=== PATIENT | female | born 1955 | race Caucasian/White ===

== ENCOUNTER → 2016-09-24 | Outpatient (CLI) | payer BC, OTHER ==
[~2016-09-24] MED LIST: ATEN-173 PO; ATV5X PO; CHOL2000 PO; DIVIGEL EXT; DIVIGEL PO; DOXYCYCLINE PO; ESZO1TAB6 PO; FAMO20TA9 PO; MULT-188 PO; OMEG12006 PO; ONDA4TAB65 PO; OPTIRAY 320 IV PRN; PANC1200 PO; PROG1CAP PO; RANI300T2 PO; TNR25 PO; VNCS125 PO; [UNRECOGNIZED DRUG - CODE] PO
--- NOTE | 2016-09-24 09:51 | DIAGNOSTIC IMAGING REPORT ---
CT OF THE CHEST WITH IV CONTRAST CLINICAL HISTORY: LUNG ADENOCARCINOMA COMPARISON STUDY: 03/17/2016 TECHNIQUE: Following the IV administration of 93 mL of Optiray-320, CT of the thorax was performed from the thoracic inlet to the lung bases. Images are reviewed in the axial, sagittal, and coronal planes. IV contrast was administered without complication. CT DOSE: 197.62 mGy.cm FINDINGS: Thyroid: Imaged portions of the thyroid gland are normal in appearance. Thoracic aorta: The thoracic aorta is normal in course and caliber, noting standard 3-vessel arch anatomy. No aneurysm or dissection is seen. Pulmonary vasculature: The pulmonary trunk is normal in caliber. There are no central filling defects identified to suggest pulmonary embolus. Note that this examination was not protocoled for the evaluation of pulmonary emboli. HEART: There is a small pericardial effusion Lungs and pleural spaces: There is a small left pleural effusion, markedly decreased when compared the prior study. There are postsurgical changes of a left lower lobectomy. There is suture material within the left lung apex with decreasing surrounding soft tissue. The findings are felt to be postsurgical. There are no new or recurrent pulmonary masses identified. Mediastinum: There is no mediastinal lymphadenopathy. Kimberly: There is no evidence of pathologic hilar adenopathy. Axilla: There is no evidence of pathologic axillary lymphadenopathy Upper abdomen: There is a stable 3.4 cm right lobe hepatic mass. A prior MRI study performed April 2016, indicating this likely represents a hemangioma Skeletal structures: There is a stable subtle lytic lesion within the manubrium. IMPRESSION: 1. Improving postoperative changes within the left hemithorax with decreasing soft tissue surrounding the left apical suture line, and decreasing left pleural fluid. 2. No evidence of recurrent neoplasm within the chest. 3. Stable 3.4 cm right lobe hepatic mass likely representing a hemangioma 4. Stable 11 mm lytic lesion within the manubrium Electronically signed by: Forest Villarreal M.D. 09/24/2016 9:50 AM Dictated Date/Time: 09/24/2016 9:42 AM
== END | disposition home or self-care (01) ==
LOC: C.CTS 09:09
PROVIDERS: ATTEND Internal Medicine Hematology & Oncology
DX: C34.00 Malignant neoplasm of unspecified main bronchus (principal); R16.0 Hepatomegaly, not elsewhere classified

== ENCOUNTER → 2016-12-11 | Outpatient (CLI) | payer BC, OTHER ==
[~2016-12-11] MED LIST changes: -ATEN-173 PO; -DIVIGEL EXT; -DOXYCYCLINE PO; -FAMO20TA9 PO; -OMEG12006 PO; -OPTIRAY 320 IV PRN; -[UNRECOGNIZED DRUG - CODE] PO
--- NOTE | 2016-12-17 12:47 | MAMMOGRAPHY REPORT ---
BILATERAL DIGITAL SCREENING MAMMOGRAM TOMOSYNTHESIS WITH CAD: 12/11/2016 CLINICAL HISTORY: Routine screening. The patient reported to the technologist that she has worsenin g right breast tenderness as well as right breast palpable lumps. TECHNIQUE: Breast tomosynthesis in addition to standard 2D mammography was performed. Current study was also evaluated with a Computer Aided Detection (CAD) system. Bilateral CC and MLO 2-D and tomosy nthesis images including implant displaced views were obtained. Tomosynthesis images were obtained o f the implant displaced views only. COMPARISON: Comparison is made to exams dated: 06/13/2015 mammogram, 11/19/2014 mammogram, 12/04/2013 ma mmogram, and 09/09/2012 mammogram - [facility]. BREAST COMPOSITION: The tissue of both breasts is heterogeneously dense, which may obscure small mas ses. FINDINGS: A triangle marker berger the site of the palpable lump pointed out by the patient in the ri ght 6:00 breast. A square marker berger the site of pain in the right upper outer quadrant. There ar e no suspicious masses, calcifications, or areas of architectural distortion noted in either breast. There has been no significant interval change compared to prior exams. Scattered bilateral benign-a ppearing calcifications are noted. Additionally, there are multiple round circumscribed fat density masses seen bilaterally, predominantly in the right breast, some of which are rim calcified; findings are consistent with benign oil cysts related to fat necrosis. Bilateral pre-pectoral silicone impla nts are stable in appearance. IMPRESSION: ACR BI-RADS CATEGORY 0: INCOMPLETE EVALUATION: NEED ADDITIONAL IMAGING EVALUATION No mammographic evidence of malignancy in either breast. However, at the time of the exam, the patie nt reported to the technologist that she has right breast palpable lumps and increasing right breast pain. As the complete workup of a palpable lump or focal pain includes mammograms as well as ultraso und, recommend additional imaging evaluation with ultrasound. The patient will be called to schedule an appointment. Approximately 10% of breast cancers are not detected with mammography. A negative mammographic report should not delay biopsy if a clinically suggestive mass is present. Angela Miranda M.D. ah/:12/16/2016 15:08:17 Bakery Deliverer: Katlyn DUARTE)(Jonh), [facility] letter sent: Addl Imaging 0 BI-RADS Code: ACR BI-RADS Category 0: Incomplete Evaluation: Need Additional Imaging Evaluation
== END | disposition home or self-care (01) ==
LOC: C.MAMM 10:56
PROVIDERS: ATTEND Physician Assistant
DX: Z12.31 Encounter for screening mammogram for malignant neoplasm of breast (principal)

== ENCOUNTER → 2016-12-29 | Outpatient (CLI) | payer BC, OTHER ==
--- NOTE | 2016-12-29 14:36 | MAMMOGRAPHY REPORT ---
ULTRASOUND OF RIGHT BREAST: 12/29/2016 CLINICAL HISTORY: 61-year-old woman with a personal history of lung cancer and multiple prior breast surgeries reported lumps in the periareolar and 6:00 right breast, and pain/thickening in the upper o uter quadrant of the right breast. She reports she frequently feels lumps and pain in the right [address]. Occasionally she has severe pain while lying on her right side in the area where her arm is touc nohemy the breasts. No skin erythema or nipple discharge. Family history of breast cancer = paternal aunt. COMPARISON: Comparison is made to exams dated: 12/11/2016 mammogram - [facility], mammogram, 11/19/2014 mammogram, 12/04/2013 mammogram, and 09/09/2012 mammogram - [facility]. FINDINGS: Targeted ultrasound was first performed in the area of lumps pointed out by the patient. In the 7:00 periareolar and 6:00 breast, 1 cm from the nipple, 2 small discrete pea-sized lumps are p alpated. On ultrasound, there are 2 circumscribed round to oval anechoic nonvascular benign simple c ysts versus fat necrosis. The first seen in the 7:00 periareolar right breast measures 7.1 x 5.0 x 7 .1 mm, and the second in the 6:00 right breast, 1 cm from the nipple measures 5.0 x 4.2 x 5.0 mm. 2 additional anechoic cyst versus fat necrosis are seen in the retroareolar right breast, measuring 6.6 x 4.9 and 4.9 x 4.4 mm. Then targeted ultrasound was performed in the area of pain pointed out by the patient in the upper ou ter quadrant of the right breast. She was unable to pinpoint the exact area today but scanning was p erformed in the 8:00, 9:00 and 10:00 axes. Sonographically normal tissue is seen without a suspiciou s solid or cystic mass. A few anechoic cysts versus fat necrosis are also seen in the right upper ou ter quadrant in real-time scanning. IMPRESSION: ACR BI-RADS CATEGORY 2: BENIGN There are benign simple cysts versus benign oil cysts correlating with the palpable lumps in the 6:00 and 7:00 periareolar axes of the left breast. No suspicious sonographic abnormality identified in t he area of pain in the right upper outer quadrant. These findings are benign and could represent fib rocystic changes and/or the sequelae of prior surgery. Continued clinical monitoring is recommended. Otherwise recommend return at time of next annual screening exam. These results and recommendations were discussed with the patient at the time of the exam. Sil Swenson M.D. ay/:12/29/2016 12:03:15 Mold Engraver: Kalee GILLIAM(Travis)(Jonh), [facility] letter sent: Normal 1/2 BI-RADS Code: ACR BI-RADS Category 2: Benign
== END | disposition home or self-care (01) ==
LOC: C.MAMM 11:20
PROVIDERS: ATTEND Physician Assistant
DX: N63 Unspecified lump in breast (principal); N60.02 Solitary cyst of left breast

== ENCOUNTER → 2017-01-14 | Outpatient (CLI) | payer BC, OTHER ==
[~2017-01-14] MED LIST changes: +OPTIRAY 320 IV PRN
--- NOTE | 2017-01-14 09:28 | DIAGNOSTIC IMAGING REPORT ---
CT OF THE CHEST WITH IV CONTRAST CLINICAL HISTORY: Adenocarcinoma the lung. Post chemotherapy. COMPARISON STUDY: 09/24/2016 TECHNIQUE: Following the IV administration of 78 mL of Optiray-320, CT of the thorax was performed from the thoracic inlet to the lung bases. Images are reviewed in the axial, sagittal, and coronal planes. IV contrast was administered without complication. A dose lowering technique was utilized adhering to the principles of ALARA. CT DOSE: 245.74 mGy.cm FINDINGS: Thyroid: Imaged portions of the thyroid gland are normal in appearance. Thoracic aorta: The thoracic aorta is normal in course and caliber, noting standard 3-vessel arch anatomy. No aneurysm or dissection is seen. Pulmonary vasculature: The pulmonary trunk is normal in caliber. There are no central filling defects identified to suggest pulmonary embolus. Note that this examination was not protocoled for the evaluation of pulmonary emboli. HEART: The heart is normal in size and configuration, without pericardial effusion. Lungs and pleural spaces: There are postsurgical changes of a left lower lobectomy. There are areas of chronic left lung scarring. There is suture material within the left apex similar in appearance the prior study. No new or enlarging point nodules are visualized. There is no focal pulmonary consolidation. There is minimal left pleural fluid, similar to the prior study. Mediastinum: There is no mediastinal lymphadenopathy. Kimberly: Clear. Axilla: Clear. Upper abdomen: There is a stable 35mm right lobe hepatic mass, consistent with the patient's known hemangioma. There are bilateral breast prostheses. Skeletal structures: There is a stable very subtle lytic focus within the manubrium. IMPRESSION: 1. No evidence of recurrent neoplasm within the chest 2. Stable 35mm right lobe hepatic mass consistent with the patient's known hemangioma 3. Stable very subtle lytic focus within the manubrium Electronically signed by: Forest Villarreal M.D. 01/14/2017 9:27 AM Dictated Date/Time: 01/14/2017 9:20 AM
== END | disposition home or self-care (01) ==
LOC: C.CTS 08:57
PROVIDERS: ATTEND Internal Medicine Hematology & Oncology
DX: C34.00 Malignant neoplasm of unspecified main bronchus (principal); R16.0 Hepatomegaly, not elsewhere classified

== ENCOUNTER → 2017-01-27 | Outpatient (CLI) | payer BC, OTHER ==
[~2017-01-27] MED LIST changes: -OPTIRAY 320 IV PRN
== END | disposition home or self-care (01) ==
LOC: C.PAPS 09:52
PROVIDERS: ATTEND Physician Assistant
DX: Z01.419 Encounter for gynecological examination (general) (routine) without abnormal findings (principal)

== ENCOUNTER → 2017-04-05 | Day surgery (SDC) | payer BC, OTHER ==
[2017-03-23 08:59] VITALS: Ht 162.6 cm; Wt 52.7 kg
--- NOTE | 2017-04-02 13:24 | HISTORY & PHYSICAL EXAMINATION ---
DATE OF ADMISSION: 04/05/2017 CHIEF COMPLAINT: Cervical dysplasia with inadequate colposcopy. HISTORY OF PRESENT ILLNESS: The patient is a 61-year-old white female who had a negative Pap smear 2016, but positive high risk HPV test. Repeat Pap smear this year was again negative but once again high risk HPV testing was positive. Colposcopy revealed acetowhite epithelium at the cervical os. It was not possible to obtain a biopsy but endocervical curettage was carried out. This showed rare dysplastic squamous cells consistent with mild dysplasia. The patient is a 5, para 2. She has a history of lung cancer and has been treated with surgery and chemotherapy. ALLERGIES: THE PATIENT PROVIDES A LONG LIST OF ALLERGIES WHICH INCLUDE 5 HTP TRYPTOPHAN TABLETS, AUGMENTIN, AZITHROMYCIN, BIAXIN, CALCIUM CHANNEL BLOCKERS, CIPRO, CODEINE DERIVATIVES, DILAUDID, DOXYCYCLINE, FENTANYL, LATEX, MACROBID, NSAIDS, SKELAXIN, STATINS, SULFA DRUGS, TAXOTERE, THIMEROSAL, ULTRAM AND ZYRTEC. PAST MEDICAL HISTORY: ILLNESSES: The patient has degenerative disc disease in her cervical spine. Hyperlipidemia, irritable bowel syndrome, a leaky heart valve, history of lung cancer, and May-Thurner syndrome. She has had basal cell cancers removed. She also has a history of pancreatitis. The patient also has a history of C difficile infection though recent testing was negative. SURGERY: She has had lung surgery for the lung cancer. She also has a history of surgery for hammertoe, breast biopsy and knee surgery. SOCIAL HISTORY: The patient is . She denies smoking cigarettes. The patient does report occasional alcohol use. FAMILY HISTORY: Her mother has a history of heart disease and cerebrovascular accident, also hypertension. MEDICATIONS: The patient takes atenolol 25 mg daily, Coenzyme Q10 capsules once daily. She uses Divigel 0.5 mg/0.5 grams transdermal gel as well as Prometrium 200 mg daily, lorazepam 0.5 mg daily, Pepcid tablets as needed, Ocuvite tablets 1 daily, Milam 3 1000 mg daily, and Creon 24,000 units oral capsule daily. PHYSICAL EXAMINATION: VITAL SIGNS: Height is 5 foot 3-3/4, weight 120 pounds. HEAD, EYES, EARS, NOSE, AND THROAT: Grossly within normal limits. NECK: Supple without masses. CHEST: Her lungs are clear without wheezing. HEART: Regular rate and rhythm. No murmurs, gallops or rubs. ABDOMEN: Soft and nontender. PELVIC: External genitalia normal. Vagina pink and smooth. Cervix, no visible lesions. Uterus within normal limit size, nontender, adnexa nontender with no masses palpable. EXTREMITIES: No cyanosis, clubbing or edema. IMPRESSION: Cervical dysplasia, inadequate colposcopy, history of positive high risk HPV. PLAN: The patient is for cold knife conization. She is aware of the risks of infection, bleeding, damage to surrounding structures, possible transfusion, risks of anesthesia. She is aware of the risks of cervical stenosis. We have discussed options of no treatment which is not recommended and LEEP procedure. The patient wishes to proceed with cold knife conization. JULIETA
[~2017-04-05] VITALS: Ht 162.6 cm; Wt 52.7 kg
[~2017-04-05] MED LIST changes: +ATEN-173 PO; +ATROPINE SULFATE 0.1 MG/ML 5ML SYR IV PRN; -CHOL2000 PO; +DEXAMETHASONE SOD INJ 4 MG/ML VIAL ONE; +DIVIGEL EXT; -DIVIGEL PO; +DOXYCYCLINE PO; -ESZO1TAB6 PO; +EpHEDrine SULFATE INJ 50 MG/ML AMP IV PRN; +FAMO20TA9 PO; +FENTANYL CITRATE INJ 50 MCG/1 ML 2 ML VIAL ONE; +FERRIC SUBSULFATE 8 GM VIAL ONE; +IODINE SOLN STRONG 14 ML ONE; +KETOROLAC TROMETHAMINE 30 MG/ML VIAL ONE; +LACTATED RINGER'S 1000ML 1,000 ML IV SCH; +LIDOCAINE HCL 2% 2 ML VIAL (20MG/ML) ONE; +LIDOCAINE/EPINEPHRINE 1% INJ 50 ML VIAL ONE; +MIDAZOLAM HCL 1 MG/ML 2ML VIAL ONE; +OMEG12006 PO; -ONDA4TAB65 PO; +ONDANSETRON INJ 2 MG/ML 2 ML VIAL ONE; +PROPOFOL IV EMULSION 10 MG/ML 20 ML VIAL IV ONE; -RANI300T2 PO; +SCOPOLAMINE 1.5 MG TDSY TD ONE; +SODIUM CHLORIDE 0.9% 1000ML 1,000 ML IV SCH; -TNR25 PO; -VNCS125 PO; +[UNRECOGNIZED DRUG - CODE] PO
--- NOTE | 2017-04-05 07:10 | History & Physical Bridge - SC ---
H&P Re-Evaluation Bridge Note: I have examined the patient, reviewed the History & Physical and in the interval since the performance of the History & Physical I have noted the following changes of clinical significance: Patient complains of grape like growth at anus. Patient examined and hemorrhoidal tissue noted. No other change in history or physical.
--- NOTE | 2017-04-05 07:44 | [facility] Post Operative Brief Note ---
Immediate Operative Summary Operative Date Apr 05, 2017. Pre-Operative Diagnosis Cervical dysplasia with inadequate colposcopy Post-Operative Diagnosis Same with pathology pending Procedure(s) Performed Cold Knife Cone Biopsy of Cervix Surgeon Dr. Boone Emergency Care Attendant Surgeon(s) None Estimated Blood Loss 10ml Findings See dictated note. Specimens A. Cervical cone biopsy, suture at 12 o'clock B. Endocervical curettings C. Cervical Anterior Lip Complication(s) None Disposition Recovery Room / PACU
--- NOTE | 2017-04-05 07:55 | Discharge Instructions-SurgCtr ---
Discharge Instructions Date of Service Apr 05, 2017. Visit Reason for Visit: Cervical dysplasia, inadequate colposcopy Discharge Discharge Diagnosis / Problem: S/P Cold Knife Cone Biopsy of Cervix Discharge Goals Goal(s): Diagnostic testing, Therapeutic intervention Activity Recommendations Activity Limitations: per Instructions/Follow-up section ACTIVITY RECOMMENDATIONS: Normal activity the day after procedure with the following exceptions/ limitations: 1. No strenuous activity for 3 days. 2. Nothing in vagina until after you are cleared by your physician, usually 4-6 weeks. 3. No heavy lifting greater than 10 pounds for 3 days. 4. No tampons, douches or intercourse until cleared by physician. 5. You may drive when you feel capable after 24 hours. 6. You may bath or shower. 7. You may climb stairs without restrictions. 8. If you have persistent cramping, foul smelling vaginal discharge or fever, call the office at [phone]. Anesthesia . Post Anesthesia Instructions: If you have had General Anesthesia or IV Sedation: * Do not drive today. * Resume driving when surgeon permits. * Do not make important decisions or sign legal documents today. * Call surgeon for: 1. Temperature elevations greater than 101 degrees F. 2. Uncontrollable pain. 3. Excessive bleeding. 4. Persistent nausea and vomiting. 5. Medication intolerance (nausea, vomiting or rash). * For nausea and vomiting use only clear liquids such as: tea, soda, bouillon until nausea subsides, then gradually increase diet as tolerated. * If you have any concerns or questions, call your surgeon's office. If physician is unavailable and it is an emergency, call 911 or go to the nearest emergency room. . Instructions / Follow-Up Instructions / Follow-Up ACTIVITY RECOMMENDATIONS: Normal activity the day after procedure with the following exceptions/ limitations: 1. No strenuous activity for 3 days. 2. Nothing in vagina until cleared by your physician. 3. No heavy lifting greater than 10 pounds for three days. 4. No tampons, douches or intercourse until cleared by physician. 5. You may drive when you feel capable after 24 hours. 6. You may bath or shower. 7. You may climb stairs without restrictions. 8. If you have persistent cramping, foul smelling discharge or fever, call office at [phone]. Set up follow up appointment with Dr Boone for about 4 weeks call [phone]. Diet Recommendations Home Diet: resume previous diet Procedures Procedures Performed: Cold Knife Cone Biopsy of Cervix Pending Studies Studies pending at discharge: yes List of pending studies: Pathology report on tissue removed. We will call you. The report usually takes at least one week. Medical Emergencies . Who to Call and When: Medical Emergencies: If at any time you feel your situation is an emergency, please call 911 immediately. . Non-Emergent Contact Non-Emergency issues call your: Space Studies Faculty Member Call Non-Emergent contact if: temperature is above 100.5, your pain is worsening . . "Provider Documentation" section prepared by Marian Boone. .
--- NOTE | 2017-04-05 08:03 | OPERATIVE REPORT ---
DATE OF OPERATION: 04/05/2017 PREOPERATIVE DIAGNOSIS: Cervical dysplasia with inadequate colposcopy. POSTOPERATIVE DIAGNOSIS: Same with pathology pending. PROCEDURE: Cold knife cone biopsy of the cervix. SURGEON: Dr. Marian Boone. ANESTHESIA: General. ANESTHESIOLOGIST: Dr. King. PROCEDURE IN DETAIL: The patient was taken to the operating room where general anesthesia was administered. After an adequate level was obtained, she was placed in dorsal lithotomy position. Vulva, vagina and cervix were prepped with Betadine solution. The patient was draped. Bladder was drained with a straight catheter. Weighted speculum was placed in the posterior fornix of the vagina. The anterior lip of the cervix was grasped with a single tooth tenaculum. Sutures of 0 Vicryl were placed lateral to the cervix at 3 o'clock and 9 o'clock for hemostasis. Lugol's solution was then used to paint the cervix. There were no unstained areas visible at the cervical os. There was an area on the anterior lip where the epithelium did not take up the stain well. The cervix was then injected with lidocaine with epinephrine, 5 mL used. A scalpel was used to cut a 2 cm deep cone biopsy of the cervix. This was removed with Alonzo scissors. The endocervical canal was identified once more and the canal curetted with a Pozo's curette. Scant tissue obtained. This was also sent to pathology. Finally, the area on the anterior lip of the cervix which did not take up the Lugol's stain very well, was removed and sent separately to pathology. Hemostasis was then obtained with ball tip cautery and with Monsel's paste. The patient tolerated the procedure well and was taken to the recovery room in good condition. I attest to the content of the Intraoperative Record and any orders documented therein. Any exceptions are noted below. MTDD
[2017-04-05 08:37] VITALS: TEMP 36.8
[2017-04-05 09:07] VITALS: BP 106/61; PULSE 63; O2SAT 100
--- NOTE | 2017-04-05 09:08 | Anesthesia Progress Nt - [facility] ---
Anesthesia Post Op Note Date & Time Apr 05, 2017 at 09:07 Vital Signs Pain Intensity: 0 Vital Signs Past 12 Hours Date Time Temp Pulse Resp B/P (MAP) Pulse Ox O2 Delivery O2 Flow Rate FiO2 04/05/17 08:37 36.8 66 16 103/63 (76) 100 Room Air 04/05/17 08:26 102/54 04/05/17 08:25 36.9 68 16 102/54 100 Room Air 04/05/17 08:22 67 21 99 04/05/17 08:22 66 21 04/05/17 08:21 110/69 04/05/17 08:17 63 13 100 04/05/17 08:17 64 13 04/05/17 08:15 112/64 04/05/17 08:12 60 16 04/05/17 08:12 60 16 100 04/05/17 08:10 105/77 04/05/17 08:07 63 13 100 04/05/17 08:07 63 13 04/05/17 08:06 96/55 04/05/17 08:05 69 19 04/05/17 08:05 69 19 100 04/05/17 08:00 64 22 04/05/17 08:00 64 22 117/64 100 04/05/17 08:00 36.8 64 12 117/64 100 Diffusion Mask 6 04/05/17 06:33 36.9 74 16 99/62 (74) 100 Room Air Notes Mental Status: alert / awake / arousable, participated in evaluation Pt Amnestic to Procedure: Yes Nausea / Vomiting: adequately controlled Pain: adequately controlled Airway Patency, RR, SpO2: stable & adequate BP & HR: stable & adequate Hydration State: stable & adequate Anesthetic Complications: no major complications apparent
== END | disposition home or self-care (01) ==
LOC: X.SURG 06:19
PROVIDERS: ATTEND Obstetrics & Gynecology
DX: N87.0 Mild cervical dysplasia (principal); R87.810 Cervical high risk human papillomavirus (HPV) DNA test positive; M50.90 Cervical disc disorder, unspecified, unspecified cervical region; Z79.899 Other long term (current) drug therapy

== ENCOUNTER 2017-05-15 12:01 | Emergency (ER) | payer BC, OTHER ==
[~2017-05-15] VITALS: Ht 162.6 cm; Wt 56.0 kg
[~2017-05-15 12:01] MED LIST changes: -ATEN-173 PO; -ATROPINE SULFATE 0.1 MG/ML 5ML SYR IV PRN; -DEXAMETHASONE SOD INJ 4 MG/ML VIAL ONE; -EpHEDrine SULFATE INJ 50 MG/ML AMP IV PRN; -FENTANYL CITRATE INJ 50 MCG/1 ML 2 ML VIAL ONE; -FERRIC SUBSULFATE 8 GM VIAL ONE; -IODINE SOLN STRONG 14 ML ONE; -KETOROLAC TROMETHAMINE 30 MG/ML VIAL ONE; -LACTATED RINGER'S 1000ML 1,000 ML IV SCH; -LIDOCAINE HCL 2% 2 ML VIAL (20MG/ML) ONE; -LIDOCAINE/EPINEPHRINE 1% INJ 50 ML VIAL ONE; -MIDAZOLAM HCL 1 MG/ML 2ML VIAL ONE; -MULT-188 PO; -OMEG12006 PO; -ONDANSETRON INJ 2 MG/ML 2 ML VIAL ONE; -PANC1200 PO; -PROPOFOL IV EMULSION 10 MG/ML 20 ML VIAL IV ONE; -SCOPOLAMINE 1.5 MG TDSY TD ONE; -SODIUM CHLORIDE 0.9% 1000ML 1,000 ML IV SCH
[2017-05-15 12:08] VITALS: TEMP 36.8; Ht 162.6 cm; Wt 56.0 kg
[2017-05-15] MEDS ORDERED: KETOROLAC TROMETHAMINE 30 MG/ML VIAL IV STA (12:24)
[2017-05-15] MEDS ORDERED: ONDANSETRON INJ 2 MG/ML 2 ML VIAL IV STA (12:24)
[2017-05-15] MEDS ORDERED: SODIUM CHLORIDE 0.9% 1000ML 500 ML IV STA (12:24)
[2017-05-15] MEDS ORDERED: ACETAMINOPHEN 500 MG TAB PO STA (12:24)
[2017-05-15] MEDS ORDERED: GABA-112 PO (13:04)
--- NOTE | 2017-05-15 13:12 | DIAGNOSTIC IMAGING REPORT ---
L TIBIA/FIBULA 2 VIEWS ROUTINE CLINICAL HISTORY: 61 years-old Female presenting with PAIN, POSS NODULE DISTAL LEG/BONE/CA HIST. TECHNIQUE: Frontal and lateral views of the left lower leg were obtained. COMPARISON: None. FINDINGS: Knee joint and ankle mortise intact. No acute fracture or malalignment. No advanced degenerative change. No radiographic soft tissue abnormality. IMPRESSION: No acute osseous injury of the left lower leg. Electronically signed by: Rocky Underwood M.D. 05/15/2017 1:11 PM Dictated Date/Time: 05/15/2017 1:10 PM
--- NOTE | 2017-05-15 13:16 | EMERGENCY ROOM VISIT NOTE ---
History Report prepared by Leti: Evaristo Alejandro Under the Supervision of: Dr. Alpesh Tran M.D. First contact with patient: 12:19 Chief Complaint: HEADACHE Stated Complaint: SEVERE HEAD PAIN, NAUSEA, DIZZY History of Present Illness The patient is a 61 year old female who presents to the Emergency Room with complaints of an intermittent headache beginning three weeks ago. She rates her discomfort as an 8/10 in severity. The patient reports that her symptoms are worsened in the afternoon and evening. The patient states that she has been experiencing tinnitus and dizziness for the last three weeks. She reports that they had been short episodes and manageable until recently. The patient states that she would have pain behind her eyes and into the back of her head. She reports that she also feels as if her face is hot and "in flames". She states that her symptoms are also accompanied by intermittent nausea. The patient states that she was relieved of her symptoms for three days, but reports that the last three days her symptoms returned and have remained constant. The patient states that she took Ibuprofen for her symptoms without any relief. The patient reports that she is worried that her lung cancer has metastasized. She reports that her last chemotherapy was on August 05, 2015. The patient states that she had a lobectomy on her left side due to her cancer. She states that she developed C. Diff. following the surgery. She states that since the chemotherapy, she noticed her arms and legs have progressively become weaker. The patient states that she also has a lump on her right leg that is painful. She denies sinus congestion and a sore throat. Source of History: patient Onset: three weeks ago Position: head Symptom Intensity: 8/10 Quality: ache Timing: intermittent Modifying Factors (Worsening): other (worsened in the evening) Modifying Factors (Relieving): ibuprofen Associated Symptoms: + nausea, No sorethroat Review of Systems See HPI for pertinent positives & negatives. A total of 10 systems reviewed and were otherwise negative. Past Medical & Surgical Medical Problems: (1) Bronchitis (2) Clostridium difficile enterocolitis (3) Failure of outpatient treatment Family History Heart disease Hypertension Lung disease Social History Smoking Status: Never Smoker Alcohol Use: occasionally Drug Use: none Marital Status: Housing Status: lives with family Occupation Status: employed Current/Historical Medications Scheduled Amoxicillin (Amoxil), 500 MG PO TID Atenolol (Tenormin), 25-37.5 MG PO QPM Gabapentin (Neurontin), 100 MG PO HS Multiple Vitamins W/ Minerals (Ocuvite), 1 TAB PO QAM Erhard-3 Fatty Acids (Erhard 3), 1 CAP PO DAILY Pancrelipase (Lipase-Protease- (Creon [id number]), 2 CAP PO TIDM Scheduled PRN Eszopiclone (Lunesta), 0.25 TAB PO HS PRN for Sleep Lorazepam (Lorazepam), 0.5 MG PO QPM PRN for PRN Allergies Coded Allergies: Latex (Verified Allergy, Severe, INFLAMATION, REDNESS, PAIN, 04/05/17) Sulfa Antibiotics (Verified Allergy, Severe, RASH, 04/05/17) FROM G Calcium Channel Blockers (Verified Allergy, Unknown, CAN'T REMEMBER, 04/05) Cetirizine (Verified Allergy, Unknown, VASCULAR CONTRACTIONS, 04/05/17) Chlorine (Unverified Allergy, Unknown, INFLAMMATION, 04/05/17) Ciprofloxacin (Verified Allergy, Unknown, RASH, 04/05/17) Clarithromycin (Verified Allergy, Unknown, RASH, 04/05/17) Doxycycline (Verified Allergy, Unknown, PANCREATITIS, 04/05/17) Milk (Verified Allergy, Unknown, LACTOSE INTOL, 04/05/17) Milk-related Compounds (Verified Allergy, Unknown, LACTOSE INTOL., ) Mirtazapine (Verified Allergy, Unknown, "TETRACYCLIC ANTIDEPRESSANTS", ) Nitrofurantoin (Verified Allergy, Unknown, RASH, 04/05/17) Metaxalone (Verified Adverse Reaction, Intermediate, RACING HEART, DIZZY, SICK, PAIN IN ANKLES/FEET, 05/15/17) Monosodium Glutamate (Verified Adverse Reaction, Mild, MIGRAINES, 04/05/17 ) Azithromycin (Verified Adverse Reaction, Unknown, GI DISTRESS, 05/15/17) Clavulanic Acid (Verified Adverse Reaction, Unknown, DIARRHEA, 04/05/17) Codeine (Verified Adverse Reaction, Unknown, DROP IN BP, 04/05/17) Fentanyl (Verified Adverse Reaction, Unknown, VOMITTING, 04/05/17) LOWERS BP, VOMITING Hydromorphone (Verified Adverse Reaction, Unknown, VOMITTING, 04/05/17) Lactose (Verified Adverse Reaction, Unknown, INTOLERANT, 05/15/17) NSAIDs (Verified Adverse Reaction, Unknown, WATER RETENTION, 04/05/17) Statins (Verified Adverse Reaction, Unknown, MUSCLE LEG PAIN, 04/05/17) Tramadol (Verified Adverse Reaction, Unknown, SICK, 04/05/17) Uncoded Allergies: FRAGRANCES (Allergy, Unknown, INFLAMMATION AND IRRITATION, 12/09/15) [place] (Allergy, Unknown, SWELLING AROUND EYES, 12/09/15) PETROLEUM (Allergy, Unknown, SWELLING, REDNESS, IRRITATION, 12/09/15) THIMERASOL (Allergy, Unknown, HIGH FEVER AND BLINDING HEADACHE, 12/09/15) ANTIDEPRESSANTS (Adverse Reaction, Unknown, ARRHYTHYMIA, 12/09/15) MYCINS (Adverse Reaction, Unknown, GI INTOLERANCE, 12/09/15) STEROID (Adverse Reaction, Unknown, SEVERE PAIN, BURNING HOT, INFLAMMATION , 12/09/15) STEROID INJECTION* Physical Exam Vital Signs Date Time Temp Pulse Resp B/P (MAP) Pulse Ox O2 Delivery O2 Flow Rate FiO2 05/15/17 15:06 61 20 108/60 99 Room Air 05/15/17 12:08 36.8 69 18 125/63 100 Room Air Physical Exam GENERAL: Patient is in no acute distress. HEENT: No acute trauma, normocephalic atraumatic, mucous membranes moist, no nasal congestion, no scleral icterus. TMs clear bilaterally. Pupils are equal and reactive to light. NECK: No stridor, no adenopathy, no meningismus, trachea is midline. LUNGS: Clear to auscultation bilaterally, no wheeze, no rhonchi, breath sounds equal. HEART: Without murmurs gallops or rubs, regular rate and rhythm. ABDOMEN: Soft, nontender, bowel sounds positive, no hernias, no peritonitis. EXTREMITIES: No cyanosis or edema, full range of motion of all the joints without pain or difficulty, no signs for acute trauma. 1 cm palpable lesion located to the distal left leg along the medial aspect of the tibia. There is no erythema or warmth. The area is tender. NEUROLOGIC: Oriented x 3, no acute motor or sensory deficits, no focal weakness. No pronator drift or cerebellar dysfunction. No speech slur or facial droop. SKIN: No rash, no jaundice, no diaphoresis. Medical Decision & Procedures ER Provider Diagnostic Interpretation: Radiology results as stated below per my review and radiologist interpretation: BRAIN COMBO CLINICAL HISTORY: 61 years-old Female presenting with Evaluate for mass, hemorrhage or pathology--HISTORY OF CANCER, tinnitus, nausea, history of adenocarcinoma the lung in 2012 with recurrent disease in 2016, no recent trauma, concern for metastatic disease. TECHNIQUE: Multisequence, multiplanar MR imaging of the brain was performed before and after the administration of intravenous contrast. IV contrast: 5.6 mL of Gadavist. COMPARISON: 09/04/2015. FINDINGS: Ventricles and sulci normal in size. Brain parenchyma normal in appearance with preserved grossman-white differentiation. No mass effect or midline shift. No restricted diffusion to suggest acute ischemia. No hemorrhage. No extra-axial fluid collection. T2 skull base flow voids preserved. No abnormal parenchymal enhancement. Bone marrow signal intensity within the calvarium within normal limits. IMPRESSION: 1. No acute intracranial pathology. No abnormal enhancement. Electronically signed by: Rocky Underwood M.D. 05/15/2017 2:55 PM Dictated Date/Time: 05/15/2017 2:50 PM L TIBIA/FIBULA 2 VIEWS ROUTINE CLINICAL HISTORY: 61 years-old Female presenting with PAIN, POSS NODULE DISTAL LEG/BONE/CA HIST. TECHNIQUE: Frontal and lateral views of the left lower leg were obtained. COMPARISON: None. FINDINGS: Knee joint and ankle mortise intact. No acute fracture or malalignment. No advanced degenerative change. No radiographic soft tissue abnormality. IMPRESSION: No acute osseous injury of the left lower leg. Electronically signed by: Rocky Underwood M.D. 05/15/2017 1:11 PM Dictated Date/Time: 05/15/2017 1:10 PM Laboratory Results 05/15/17 12:55 Red Blood Count 4.19, Mean Corpuscular Volume 89.7, Mean Corpuscular Hemoglobin 30.8, Mean Corpuscular Hemoglobin Concent 34.3, Mean Platelet Volume 9.7, Neutrophils (%) (Auto) 51.0, Lymphocytes (%) (Auto) 38.9, Monocytes (%) (Auto) 7.1, Eosinophils (%) (Auto) 2.7, Basophils (%) (Auto) 0.1, Neutrophils # (Auto) 4.16, Lymphocytes # (Auto) 3.18, Monocytes # (Auto) 0.58, Eosinophils # (Auto) 0.22, Basophils # (Auto) 0.01 05/15/17 12:55 Test 05/15/17 12:55 White Blood Count 8.17 K/uL (4.8-10.8) Red Blood Count 4.19 M/uL (4.2-5.4) Hemoglobin 12.9 g/dL (12.0-16.0) Hematocrit 37.6 % (37-47) Mean Corpuscular Volume 89.7 fL (80-100) Mean Corpuscular Hemoglobin 30.8 pg (25-34) Mean Corpuscular Hemoglobin Concent 34.3 g/dl (32-36) Platelet Count 197 K/uL (130-400) Mean Platelet Volume 9.7 fL (7.4-10.4) Neutrophils (%) (Auto) 51.0 % Lymphocytes (%) (Auto) 38.9 % Monocytes (%) (Auto) 7.1 % Eosinophils (%) (Auto) 2.7 % Basophils (%) (Auto) 0.1 % Neutrophils # (Auto) 4.16 K/uL (1.4-6.5) Lymphocytes # (Auto) 3.18 K/uL (1.2-3.4) Monocytes # (Auto) 0.58 K/uL (0.11-0.59) Eosinophils # (Auto) 0.22 K/uL (0-0.5) Basophils # (Auto) 0.01 K/uL (0-0.2) RDW Standard Deviation 42.0 fL (36.4-46.3) RDW Coefficient of Variation 12.9 % (11.5-14.5) Immature Granulocyte % (Auto) 0.2 % Immature Granulocyte # (Auto) 0.02 K/uL (0.00-0.02) Erythrocyte Sedimentation Rate 8 mm/hr (0-21) Anion Gap 5.0 mmol/L (3-11) Est Creatinine Clear Calc Drug Dose 63.0 ml/min Estimated GFR () 92.3 Estimated GFR (Non- 79.7 BUN/Creatinine Ratio 17.5 (10-20) Calcium Level 8.5 mg/dl (8.5-10.1) Magnesium Level 2.0 mg/dl (1.8-2.4) Total Bilirubin 0.6 mg/dl (0.2-1) Aspartate Amino Transf (AST/SGOT) 16 U/L (15-37) Alanine Aminotransferase (ALT/SGPT) 22 U/L (12-78) Alkaline Phosphatase 63 U/L (45-117) C-Reactive Protein < 0.29 mg/dl (0-0.29) Total Protein 6.6 gm/dl (6.4-8.2) Albumin 3.5 gm/dl (3.4-5.0) Globulin 3.1 gm/dl (2.5-4.0) Albumin/Globulin Ratio 1.1 (0.9-2) Thyroid Stimulating Hormone (TSH) 1.490 uIu/ml (0.300-4.500) Lyme Disease IgG Antibody NEG (NEG) Laboratory results reviewed by me. Medications Administered Medications (Trade) Dose Ordered Sig/Alka Route Start Time Stop Time Status Last Admin Dose Admin Sodium Chloride 500 ml @ 999 mls/hr Q31M STAT IV 05/15/17 12:24 05/15/17 12:54 DC 05/15/17 13:02 999 MLS/HR Ondansetron HCl (Zofran Inj) 4 mg NOW STAT IV 05/15/17 12:24 05/15/17 12:28 DC 05/15/17 13:03 4 MG Ketorolac Tromethamine (Toradol Inj) 30 mg NOW STAT IV 05/15/17 12:24 05/15/17 12:28 DC 05/15/17 13:02 30 MG Acetaminophen (Tylenol Tab) 1,000 mg NOW STAT PO 05/15/17 12:24 05/15/17 12:28 DC 05/15/17 13:03 1,000 MG Heparin Sodium (Porcine) (Heparin 100 Unit/ml 5ml Flush) 5 ml STK-MED ONCE .ROUTE 05/15/17 15:34 05/15/17 15:35 DC 05/15/17 15:36 5 ML ED Course 1222: The patient was evaluated in room C06. A complete history and physical exam was performed. 1224: Ordered Tylenol Tab 1000 mg PO, Toradol Injection 30 mg Iv, Zofran Injection 4 mg IV, Sodium Chloride 500 ml @ 999 mls/hr IV. 1532: Reevaluated the patient. Discussed results and discharge instructions: She verbalized understanding and agreement. The patient is ready for discharge. 1534: Ordered Heparin Sodium (Porcine) 5 ml IV. Medical Decision The patient is a 61 year old female who presents to the Emergency Room with complaints of an intermittent headache beginning three weeks ago. Differential diagnoses considered include intracranial bleeding or mass, migraine headaches, sinusitis, otitis media, pharyngitis, electrolyte imbalance, anemia, and UTI. There is no leukocytosis or concerning anemia. No significant electrolyte abnormality, kidney failure or hepatitis. The patient appears to be in a euthyroid state. Sedimentation rate and C-reactive protein were normal. Lyme disease testing returned equivocal. The backup Lyme testing is pending. Left tib-fib film did not show any bony abnormality or calcification. Brain MRI showed no stroke, mass or other concerning lesion. The patient presents with weeks of intermittent headaches and tendinitis. She was mostly concerned that she had a metastatic lesion in her brain. MRI imaging was reassuring. The patient may have Lyme disease, I discussed options with her. She is in favor of starting treatment and waiting for the backup testing. She is being prescribed amoxicillin as she is allergic to doxycycline. The patient will follow with her doctors office. If her symptoms are persisting, she may require a neurologic referral. The patient was reassured, she is not toxic or febrile. She has no focal neurologic deficit. There is no meningismus. She is being discharged home. Medication Reconcilliation Current Medication List: was personally reviewed by me Blood Pressure Screening Patient's blood pressure: Normal blood pressure Impression Primary Impression: Headache Additional Impression: Lyme disease Scribe Attestation The scribe's documentation has been prepared under my direction and personally reviewed by me in its entirety. I confirm that the note above accurately reflects all work, treatment, procedures, and medical decision making performed by me. Departure Information Dispostion Home / Self-Care Prescriptions Amoxicillin (AMOXIL) 500 Mg Tab 500 MG PO TID for 21 Days, #63 TAB Prov: Alpesh Tran M.D. 05/15/17 Referrals Claudette Nelson M.D. (PCP) Patient Instructions My [facility] Additional Instructions double up on your probiotic amoxicillin 3x per day for 3 weeks see yohana pettit this week return if worsening lab work was ok, MRI was ok Problem Qualifiers
[2017-05-15 13:24] LABS: BASO % 0.1 %; BASO ABS # 0.01 K/uL (0-0.2); EOS % 2.7 %; EOS ABS # 0.22 K/uL (0-0.5); HEMATOCRIT 37.6 % (37-47); HEMOGLOBIN 12.9 g/dL (12.0-16.0); IG# 0.02 K/uL (0.00-0.02); LYMPH % 38.9 %; LYMPH ABS # 3.18 K/uL (1.2-3.4); MEAN CELL VOLUME 89.7 fL (80-100); MEAN CORPUSCULAR HEMOGLOBIN 30.8 pg (25-34); MEAN CORPUSCULAR HGB CONC 34.3 g/dl (32-36); MEAN PLATELET VOLUME 9.7 fL (7.4-10.4); MONO % 7.1 %; MONO ABS # 0.58 K/uL (0.11-0.59); NEUT ABS # 4.16 K/uL (1.4-6.5); PLATELET COUNT 197 K/uL (130-400); RED CELL DISTRIBUTION WIDTH CV 12.9 % (11.5-14.5); WHITE BLOOD COUNT 8.17 K/uL (4.8-10.8)
[2017-05-15 13:45] LABS: ALBUMIN 3.5 gm/dl (3.4-5.0); ALT/SGPT 22 U/L (12-78); AST/SGOT 16 U/L (15-37); BLOOD UREA NITROGEN 14 mg/dl (7-18); CALCIUM 8.5 mg/dl (8.5-10.1); CARBON DIOXIDE 25 mmol/L (21-32); CREATININE 0.79 mg/dl (0.60-1.20); GLUCOSE 83 mg/dl (70-99); POTASSIUM 3.9 mmol/L (3.5-5.1); SODIUM 137 mmol/L (136-145)
[2017-05-15 13:55] LABS: ALKALINE PHOSPHATASE 63 U/L (45-117); TOTAL PROTEIN 6.6 gm/dl (6.4-8.2)
--- NOTE | 2017-05-15 14:56 | DIAGNOSTIC IMAGING REPORT ---
BRAIN COMBO CLINICAL HISTORY: 61 years-old Female presenting with Evaluate for mass, hemorrhage or pathology--HISTORY OF CANCER, tinnitus, nausea, history of adenocarcinoma the lung in 2012 with recurrent disease in 2016, no recent trauma, concern for metastatic disease. TECHNIQUE: Multisequence, multiplanar MR imaging of the brain was performed before and after the administration of intravenous contrast. IV contrast: 5.6 mL of Gadavist. COMPARISON: 09/04/2015. FINDINGS: Ventricles and sulci normal in size. Brain parenchyma normal in appearance with preserved grossman-white differentiation. No mass effect or midline shift. No restricted diffusion to suggest acute ischemia. No hemorrhage. No extra-axial fluid collection. T2 skull base flow voids preserved. No abnormal parenchymal enhancement. Bone marrow signal intensity within the calvarium within normal limits. IMPRESSION: 1. No acute intracranial pathology. No abnormal enhancement. Electronically signed by: Rocky Underwood M.D. 05/15/2017 2:55 PM Dictated Date/Time: 05/15/2017 2:50 PM
[2017-05-15 15:06] VITALS: BP 108/60; PULSE 61; O2SAT 99
[2017-05-15] MEDS ORDERED: AMOX500T3 PO (15:43)
[2017-09-15] MEDS ORDERED: FAMO40TA6 PO (11:20)
[2017-09-15] MEDS ORDERED: GABA-112 PO (11:20)
[2017-09-15] MEDS ORDERED: DOXYCYCLINE PO (11:20)
[2017-09-15] MEDS ORDERED: ASPCH81X PO (11:20)
[2017-12-11] MEDS ORDERED: MULT-188 PO (08:57)
[2017-12-11] MEDS ORDERED: OMEG12006 PO (08:57)
[2017-12-11] MEDS ORDERED: ATEN-173 PO (09:13)
[2017-12-11] MEDS ORDERED: PANC1200 PO (12:26)
== END 2017-05-15 15:36 | disposition home or self-care (01) ==
LOC: C.EDB 12:03 → C.EDC 15:36
DX: R51 Headache (principal); A69.20 Lyme disease, unspecified; Z82.49 Family history of ischemic heart disease and other diseases of the circulatory system

== ENCOUNTER → 2017-06-29 | Outpatient (CLI) | payer OTHER ==
[~2017-06-29] MED LIST changes: +AMOX500T3 PO; +ATEN-173 PO; -DIVIGEL EXT; -DOXYCYCLINE PO; -FAMO20TA9 PO; +GABA-112 PO; +MULT-188 PO; +OMEG12006 PO; +PANC1200 PO; -PROG1CAP PO
--- NOTE | 2017-06-29 09:11 | DIAGNOSTIC IMAGING REPORT ---
(CHEST) THORAX WITHOUT CT DOSE: 215.13 mGy.cm HISTORY: Lung cancer. Follow-up. TECHNIQUE: Multiaxial CT images of the chest were performed without contrast. A dose lowering technique was utilized adhering to the principles of ALARA. COMPARISON: Chest CT 01/14/2017. FINDINGS: There again noted postoperative changes consistent with a prior left lower lobectomy. Suture material within the left lung apex with surrounding mild soft tissue thickening. This favors scarring. This remains unchanged. No evidence for residual recurrent disease within the left lung. Stable 2 mm nodule within the right lower lobe on image 258. There is a stable subtle 5 mm groundglass nodular density within the right lower lobe on image 122. There is also a stable subtle 6 mm groundglass nodular density within the right upper lobe on image 78. No new pulmonary nodules identified. Stable 11 mm lucent lesion within the manubrium. This favors a hemangioma. Bilateral breast augmentation. Left subclavian Port-A-Cath terminates in the distal SVC. No mediastinal or hilar lymphadenopathy. The heart is normal in size. Small pericardial effusion, unchanged. The spleen and adrenal glands are unremarkable. Stable 3.5 cm right hepatic lobe mass. This was previously described as a hemangioma. IMPRESSION: 1. No change compared to the prior study. No definite evidence for metastatic disease. 2. Stable subtle subcentimeter nodular densities within the right lung as described above. These bear watching on future examinations. 3. Stable presumed postoperative changes within the left lung. Electronically signed by: Terrell Morrell M.D. 06/29/2017 9:09 AM Dictated Date/Time: 06/29/2017 8:57 AM
== END | disposition home or self-care (01) ==
LOC: C.CTS 07:46
PROVIDERS: ATTEND Surgery
DX: C34.90 Malignant neoplasm of unspecified part of unspecified bronchus or lung (principal)

== ENCOUNTER → 2017-09-16 | Outpatient (CLI) | payer OTHER ==
[~2017-09-16] MED LIST changes: -AMOX500T3 PO; +ASPCH81X PO; -ATV5X PO; +DOXYCYCLINE PO; +FAMO40TA6 PO; -[UNRECOGNIZED DRUG - CODE] PO
--- NOTE | 2017-09-17 14:20 | MAMMOGRAPHY REPORT ---
UNILATERAL RIGHT DIGITAL DIAGNOSTIC MAMMOGRAM TOMOSYNTHESIS WITH CAD AND TARGETED RIGHT ULTRASOUND: CLINICAL HISTORY: The patient reports a painful palpable lump in the right axillary region and an are a of focal pain and possible lumps in the right upper outer breast for a few months. She has had drew ast implants for 40 years, with her most recent silicone implants placed less than 10 years ago. His tory of lung cancer. TECHNIQUE: Breast tomosynthesis in addition to standard 2D mammography was performed. Current study was also evaluated with a Computer Aided Detection (CAD) system. Right CC and MLO 2D and tomosynthes is images were obtained. Tomosynthesis images were obtained of the implant displaced views only. COMPARISON: Comparison is made to exams dated: 12/29/2016 ultrasound, 12/11/2016 mammogram - [facility], 06/13/2015 mammogram, 11/19/2014 mammogram, 12/04/2013 mammogram, and 09/09/2012 mamm ogram - [facility]. BREAST COMPOSITION: The tissue of the right breast is heterogeneously dense, which may obscure small masses. FINDINGS: Two [place] markers vianey the sites of the painful lumps in the right axillary region and right upper outer quadrant. Numerous oil cysts are again seen throughout the right breast, some of w hich are rim calcified, consistent with benign fat necrosis. Scattered benign-appearing calcificatio ns are again noted throughout the right breast. No suspicious masses, calcifications, or areas of ar chitectural distortion are noted within the right breast. The right silicone implant is stable in ap pearance mammographically. Targeted ultrasound was performed of the area of the painful lump in the right axillary region pointe d out by the patient. No suspicious masses or other suspicious sonographic abnormalities are evident . At the site of the painful lump there is a round 3 x 4 x 2 mm mass, which is echogenic anteriorly with posterior acoustic shadowing, and corresponds with a benign rim calcification seen mammographica lly. Morphologically normal right axillary lymph nodes were also seen during the exam. Targeted ultrasound was also performed of the area of focal pain and possible lumps in the right 10:0 0 breast, centered around 8 cm from the nipple, which shows no suspicious masses or other suspicious sonographic abnormalities. Slightly medial to this in the right 11:00 breast, 8 cm from the nipple, there is a round anechoic benign oil cyst measuring 5 x 5 x 5 mm. Slightly more medial to this in th e right 1130 breast is another benign oil cyst measuring 5 x 5 mm. In the right 9:00 breast, an ill-defined hyperechoic shadowing region measuring approximately 3.3 cm is seen immediately anterior to the implant which obscures evaluation of the implant in this region. This could indicate implant rupture with extracapsular silicone, however, rupture is not well evalua justo on ultrasound and is better evaluated with MRI. IMPRESSION: ACR BI-RADS CATEGORY 2: BENIGN, TARGETED ULTRASOUND ACR BI-RADS CATEGORY 2: BENIGN 1. No suspicious mammographic or sonographic abnormalities noted in the regions of the painful lumps pointed out by the patient in the right 10:00 breast and axillary region. Benign oil cysts are agai n noted throughout the right breast. 2. Ill-defined hyperechoic shadowing region immediately anterior to the implant in the right 9:00 br east on ultrasound. This could represent implant rupture with extracapsular silicone, however, ruptu re is not well evaluated on ultrasound and is better evaluated with MRI. If further evaluation is nee ded, bilateral breast MRI with and without contrast could be performed to evaluate for rupture (witho ut contrast to evaluate the implants and with contrast to evaluate the breast parenchyma given the hi story of breast pain and lumps). There is no mammographic or targeted sonographic evidence of malignancy. Recommend clinical follow-u p for right breast complaints, and recommend routine bilateral screening mammograms which are due Nov. The patient has been verbally notified of the results. Approximately 10% of breast cancers are not detected with mammography. A negative mammographic report should not delay biopsy if a clinically suggestive mass is present. Angela Miranda M.D. ah/:09/17/2017 07:48:09 Polygraph Operator: Katlyn GILLIAM(Travis)(M), [facility] letter sent: Normal 1/2 BI-RADS Code: ACR BI-RADS Category 2: Benign Ultrasound BI-RADS: ACR BI-RADS Category 2: Benign
== END | disposition home or self-care (01) ==
LOC: C.MAMM 13:44
PROVIDERS: ATTEND Physician Assistant
DX: N63.11 Unspecified lump in the right breast, upper outer quadrant (principal); Z98.82 Breast implant status; N60.01 Solitary cyst of right breast

== ENCOUNTER → 2017-09-29 | Day surgery (SDC) | payer OTHER ==
[~2017-09-29] VITALS: Ht 162.6 cm; Wt 53.2 kg
[~2017-09-29] MED LIST changes: +LIDOCAINE HCL 2% 2 ML VIAL (20MG/ML) ONE; +PROPOFOL IV EMULSION 10 MG/ML 20 ML VIAL ONE
[2017-09-29 13:36] VITALS: Ht 162.6 cm; Wt 53.2 kg
--- NOTE | 2017-09-29 14:11 | Endo History and Physical ---
History & Physical Date of Service: September 29, 2017. Chief Complaint: DYSPHAGIA Referring Physician: DR. OLIVEIRA History of Present Illness For EGD Past Surgical History Hx Cardiac Surgery: No Hx Abdominal Surgery: Yes (RECONSTRUCTION COMMON CHANNEL DUCT/PANCREAS, COLD KNIFE BIOPSY) Hx of Implantable Prosthesis: No Hx Post-Op Nausea and Vomiting: Yes Hx Cancer Surgery: Yes (Left lower lobectomy, left upper wedge resection, MOHS LEFT ARM) Hx Thoracic Surgery: No Hx Orthopedic: Yes (RT KNEE ARTHROSCOPY, LEFT FOOT SMALL TOE SURGERY) Hx Urinary Tract Surgery: No Family History IBD Social History Smoking Status: Never Smoker Hx Substance Use: No Hx Alcohol Use: Yes (GLASS OF WINE EVERY HS) Allergies Coded Allergies: Latex (Verified Allergy, Severe, INFLAMATION, REDNESS, PAIN, 09/29/17) Sulfa Antibiotics (Verified Allergy, Severe, RASH, 09/29/17) FROM [facility] Calcium Channel Blockers (Verified Allergy, Unknown, CAN'T REMEMBER, ) Cetirizine (Verified Allergy, Unknown, VASCULAR CONTRACTIONS, 09/29/17) Chlorine (Unverified Allergy, Unknown, INFLAMMATION, 09/29/17) Ciprofloxacin (Verified Allergy, Unknown, RASH, 09/29/17) Clarithromycin (Verified Allergy, Unknown, RASH, 09/29/17) Doxycycline (Verified Allergy, Unknown, PANCREATITIS, 09/29/17) Milk (Verified Allergy, Unknown, LACTOSE INTOL, 09/29/17) Milk-related Compounds (Verified Allergy, Unknown, LACTOSE INTOL., 09/29/17 ) Mirtazapine (Verified Allergy, Unknown, "TETRACYCLIC ANTIDEPRESSANTS", ) Nitrofurantoin (Verified Allergy, Unknown, RASH, 09/29/17) Metaxalone (Verified Adverse Reaction, Intermediate, RACING HEART, DIZZY, SICK, PAIN IN ANKLES/FEET, 09/29/17) Monosodium Glutamate (Verified Adverse Reaction, Mild, MIGRAINES, 09/29/17) Azithromycin (Verified Adverse Reaction, Unknown, GI DISTRESS, 09/29/17) Clavulanic Acid (Verified Adverse Reaction, Unknown, DIARRHEA, 09/29/17) Codeine (Verified Adverse Reaction, Unknown, DROP IN BP, 09/29/17) Fentanyl (Verified Adverse Reaction, Unknown, VOMITTING, 09/29/17) LOWERS BP, VOMITING Hydromorphone (Verified Adverse Reaction, Unknown, VOMITTING, 09/29/17) Lactose (Verified Adverse Reaction, Unknown, INTOLERANT, 09/29/17) NSAIDs (Verified Adverse Reaction, Unknown, WATER RETENTION, 09/29/17) Statins (Verified Adverse Reaction, Unknown, MUSCLE LEG PAIN, 09/29/17) Tramadol (Verified Adverse Reaction, Unknown, SICK, 09/29/17) Uncoded Allergies: CHEMOTHERAPY DRUG 2015 (Allergy, Severe, HEAD TO TOE INFLAMMATION PAINFUL, 09/29/17) HOSPITALIZED FOR 4 TIMES AZOTEMIC FRAGRANCES (Allergy, Unknown, INFLAMMATION AND IRRITATION, 12/09/15) [place] (Allergy, Unknown, SWELLING AROUND EYES, 12/09/15) PETROLEUM (Allergy, Unknown, SWELLING, REDNESS, IRRITATION, 12/09/15) THIMERASOL (Allergy, Unknown, HIGH FEVER AND BLINDING HEADACHE, 12/09/15) ANTIDEPRESSANTS (Adverse Reaction, Unknown, ARRHYTHYMIA, 12/09/15) MYCINS (Adverse Reaction, Unknown, GI INTOLERANCE, 12/09/15) STEROID (Adverse Reaction, Unknown, SEVERE PAIN, BURNING HOT, INFLAMMATION , 12/09/15) STEROID INJECTION* Current Medications Reported Home Medications Medications Dose Route/Sig Max Daily Dose Days Date Category Dose Instructions Pepcid (Famotidine) 40 Mg Tab 40 Mg PO QAM 09/15/17 Reported Aspirin Chewable (Aspirin) 81 Mg Chew 81 Mg PO DAILY 09/15/17 Reported [Doxycycline] 20 Mg PO BID 09/15/17 Reported Neurontin (Gabapentin) 100 Mg Cap 100 Mg PO QID 09/15/17 Reported Tenormin (Atenolol) 25 Mg Tab 25-37.5 Mg PO QPM 03/23/17 Reported TAKES PER DIRECTION FOR V-TACH [place] 3 ([place]-3 Fatty Acids) 1 Cap Cap 1 Cap PO DAILY 03/23/17 Reported Ocuvite (Multiple Vitamins W/ Minerals) 1 Tab Tab 1 Tab PO QAM 03/23/17 Reported Creon [id number] (Pancrelipase (Lipase-Protease-) 1 Cap Cap 2 Cap PO TIDM 12/09/15 Reported Vital Signs Weight (Kilograms): 53.18 Height (Feet): 5 Height (Inches): 4 Date Time Temp Pulse Resp B/P (MAP) Pulse Ox O2 Delivery O2 Flow Rate FiO2 09/29/17 13:57 36.8 63 20 128/63 (84) 97 Room Air Physical Exam General Appearance: WD/WN Respiratory/Chest: Respiratory effort: no dyspnea Cardiovascular: Apical Impulse: pertinent finding (Inf[place] in place) Heart Auscultation: RRR Abdomen: Inspection & Palpation: soft Assessment and Plan Dysphagia for EGD
--- NOTE | 2017-09-29 14:25 | Discharge Instructions ---
Endoscopy Patient Instructions Date / Procedure(s) Performed September 29, 2017. EGD Allergy Information Coded Allergies: Latex (Verified Allergy, Severe, INFLAMATION, REDNESS, PAIN, 09/29/17) Sulfa Antibiotics (Verified Allergy, Severe, RASH, 09/29/17) FROM [facility] [place] Calcium Channel Blockers (Verified Allergy, Unknown, CAN'T REMEMBER, ) Cetirizine (Verified Allergy, Unknown, VASCULAR CONTRACTIONS, 09/29/17) Chlorine (Unverified Allergy, Unknown, INFLAMMATION, 09/29/17) Ciprofloxacin (Verified Allergy, Unknown, RASH, 09/29/17) Clarithromycin (Verified Allergy, Unknown, RASH, 09/29/17) Doxycycline (Verified Allergy, Unknown, PANCREATITIS, 09/29/17) Milk (Verified Allergy, Unknown, LACTOSE INTOL, 09/29/17) Milk-related Compounds (Verified Allergy, Unknown, LACTOSE INTOL., 09/29/17 ) Mirtazapine (Verified Allergy, Unknown, "TETRACYCLIC ANTIDEPRESSANTS", ) Nitrofurantoin (Verified Allergy, Unknown, RASH, 09/29/17) Metaxalone (Verified Adverse Reaction, Intermediate, RACING HEART, DIZZY, SICK, PAIN IN ANKLES/FEET, 09/29/17) Monosodium Glutamate (Verified Adverse Reaction, Mild, MIGRAINES, 09/29/17) Azithromycin (Verified Adverse Reaction, Unknown, GI DISTRESS, 09/29/17) Clavulanic Acid (Verified Adverse Reaction, Unknown, DIARRHEA, 09/29/17) Codeine (Verified Adverse Reaction, Unknown, DROP IN BP, 09/29/17) Fentanyl (Verified Adverse Reaction, Unknown, VOMITTING, 09/29/17) LOWERS BP, VOMITING Hydromorphone (Verified Adverse Reaction, Unknown, VOMITTING, 09/29/17) Lactose (Verified Adverse Reaction, Unknown, INTOLERANT, 09/29/17) NSAIDs (Verified Adverse Reaction, Unknown, WATER RETENTION, 09/29/17) Statins (Verified Adverse Reaction, Unknown, MUSCLE LEG PAIN, 09/29/17) Tramadol (Verified Adverse Reaction, Unknown, SICK, 09/29/17) Uncoded Allergies: CHEMOTHERAPY DRUG 2015 (Allergy, Severe, HEAD TO TOE INFLAMMATION PAINFUL, 09/29/17) HOSPITALIZED FOR 4 TIMES AZOTEMIC FRAGRANCES (Allergy, Unknown, INFLAMMATION AND IRRITATION, 12/09/15) [place] (Allergy, Unknown, SWELLING AROUND EYES, 12/09/15) PETROLEUM (Allergy, Unknown, SWELLING, REDNESS, IRRITATION, 12/09/15) THIMERASOL (Allergy, Unknown, HIGH FEVER AND BLINDING HEADACHE, 12/09/15) ANTIDEPRESSANTS (Adverse Reaction, Unknown, ARRHYTHYMIA, 12/09/15) MYCINS (Adverse Reaction, Unknown, GI INTOLERANCE, 12/09/15) STEROID (Adverse Reaction, Unknown, SEVERE PAIN, BURNING HOT, INFLAMMATION , 12/09/15) STEROID INJECTION* Discharge Date / Findings September 29, 2017. Normal EGD Medication Instructions Restart Stopped Medication(s): resume meds Reported Home Medications Medications Dose Route/Sig Max Daily Dose Days Date Category Dose Instructions Pepcid (Famotidine) 40 Mg Tab 40 Mg PO QAM 09/15/17 Reported Aspirin Chewable (Aspirin) 81 Mg Chew 81 Mg PO DAILY 09/15/17 Reported [Doxycycline] 20 Mg PO BID 09/15/17 Reported Neurontin (Gabapentin) 100 Mg Cap 100 Mg PO QID 09/15/17 Reported Tenormin (Atenolol) 25 Mg Tab 25-37.5 Mg PO QPM 03/23/17 Reported TAKES PER DIRECTION FOR V-TACH [place] 3 ([place]-3 Fatty Acids) 1 Cap Cap 1 Cap PO DAILY 03/23/17 Reported Ocuvite (Multiple Vitamins W/ Minerals) 1 Tab Tab 1 Tab PO QAM 03/23/17 Reported Creon [id number] (Pancrelipase (Lipase-Protease-) 1 Cap Cap 2 Cap PO TIDM 12/09/15 Reported Provider Instructions Activity Restrictions - No exercising or heavy lifting for 24 hours. - Do not drink alcohol the day of the procedure. - Do not drive a car or operate machinery until the day after the procedure. - Do not make any important decisions or sign important papers in 24 hours after the procedure. Following Day: - Return to full activity which may include returning to work/school. Diet Start your diet with liquids and light foods (jello, soup, juice, toast). Then eat your usual diet if not nauseated. Treatment For Common After Affects For mild abdominal pain, bloating, or excessive gas: - Rest - Eat lightly - Lie on right side Follow-Up Information Follow-up with DR. OLIVEIRA as scheduled Anesthesia Information What You Should Know You have had a procedure that required some medicine to reduce anxiety and discomfort. This treatment is called moderate sedation. After receiving the treatment, you may be sleepy, but you will be able to breathe on your own. The effects of the treatment may last for several hours. Follow these instructions along with Activity/Diet recommendations noted above: * Do NOT do anything where dizziness or clumsiness would be dangerous. * Rest quietly at home today, then you can be up and about tomorrow. * Have a responsible person stay with you the rest of today. * You may have had an I.V. today. If so, you may take the dressing off later today. Recommendations Call your doctor if: * Trouble breathing * Continuous vomiting for more than 24 hours * Temperature above 101 degrees * Severe abdominal pain or bloating * Pain not relieved by pain medicine ordered * There is increased drainage or redness from any incision * A large amount of rectal bleeding greater than 2-3 tablespoons. (If you had a polyp/s removed or have hemorrhoids, a small amount of blood - from the rectum is to be expected.) * You have any unanswered questions or concerns. IN THE EVENT OF A SERIOUS EMERGENCY, GO TO THE NEAREST EMERGENCY ROOM Your discharge instructions were prepared by provider Milton Arias. Patient Instructions Signature Page Susana Penn Patient (or Guardian) Signature/Date: I have read and understand the instructions given to me by my caregivers. Caregiver/RN/Doctor Signature/Date: The above-named patient and/or guardian has received patient instructions on this date. + Original Patient Signature Page (only) stays with chart. Please make copy for patient.
--- NOTE | 2017-09-29 14:28 | GI REPORT ---
Patient Name: Susana Penn Procedure Date: 09/29/2017 2:08 PM Date of : 1955 Admit Type: Outpatient Age: 61 Gender: Female Attending MD: Milton Arias MD Procedure: Upper GI endoscopy Providers: Milton Arias MD Referring MD: Tara Harris Indications: Dysphagia Medicines: Propofol total dose 100 mg IV, Lidocaine 60 mg IV Complications: No immediate complications. Estimated Blood Loss: Estimated blood loss: none. Procedure: Pre-Anesthesia Assessment: - Prior to the procedure, a History and Physical was performed, and patient medications, allergies and sensitivities were reviewed. The patient's tolerance of previous anesthesia was reviewed. - The risks and benefits of the procedure and the sedation options and risks were discussed with the patient. All questions were answered and informed consent was obtained. After obtaining informed consent, the endoscope was passed under direct vision. Throughout the procedure, the patient's blood pressure, pulse, and oxygen saturations were monitored continuously. The scope was introduced through the mouth, and advanced to the second part of duodenum. The upper GI endoscopy was accomplished without difficulty. The patient tolerated the procedure well. Findings: The esophagus was normal. The stomach was normal. The examined duodenum was normal. Impression: - Normal esophagus. - Normal stomach. - Normal examined duodenum. - No specimens collected. Recommendation: - Discharge patient to home (ambulatory). - Continue present medications. - Return to GI office at appointment to be scheduled. Milton Arias M.D. Milton Arias MD 09/29/2017 2:27:38 PM This report has been signed electronically. Note Initiated On: 09/29/2017 2:08 PM Number of Addenda: 0 I attest to the content of the Intraoperative Record and orders documented therein, exceptions below {[id number]}
--- NOTE | 2017-09-29 14:49 | Anesthesiology Progress Note ---
Anesthesia Post Op Note Date & Time September 29, 2017 at 14:48 Vital Signs Vital Signs Past 12 Hours Date Time Temp Pulse Resp B/P (MAP) Pulse Ox O2 Delivery O2 Flow Rate FiO2 09/29/17 14:33 72 16 103/51 (68) 98 Room Air 09/29/17 13:57 36.8 63 20 128/63 (84) 97 Room Air Notes Mental Status: alert / awake / arousable, participated in evaluation Pt Amnestic to Procedure: Yes Nausea / Vomiting: adequately controlled Pain: adequately controlled Airway Patency, RR, SpO2: stable & adequate BP & HR: stable & adequate Hydration State: stable & adequate Anesthetic Complications: no major complications apparent
[2017-09-29 15:00] VITALS: BP 114/66; PULSE 70; O2SAT 98
== END | disposition home or self-care (01) ==
LOC: C.GI 13:22
PROVIDERS: ATTEND Internal Medicine Gastroenterology
DX: R13.10 Dysphagia, unspecified (principal); G62.0 Drug-induced polyneuropathy; T45.1X5A Adverse effect of antineoplastic and immunosuppressive drugs, initial encounter; C34.90 Malignant neoplasm of unspecified part of unspecified bronchus or lung; K21.9 Gastro-esophageal reflux disease without esophagitis; E78.5 Hyperlipidemia, unspecified; Z88.2 Allergy status to sulfonamides; Z91.040 Latex allergy status; Z88.8 Allergy status to other drugs, medicaments and biological substances; Z88.5 Allergy status to narcotic agent; Z79.82 Long term (current) use of aspirin; Z79.899 Other long term (current) drug therapy

== ENCOUNTER → 2017-12-10 | Outpatient (CLI) | payer OTHER ==
[~2017-12-10] MED LIST changes: +ACET-1256 PO; +ANT25 PO; +ASPI81TA28 PO; +CEFD1CAP14 PO; +DOXY20TA3 PO; -LIDOCAINE HCL 2% 2 ML VIAL (20MG/ML) ONE; +MULT-506 PO; +NRN100 PO; +OFLO0.3D4 OTL; +ONDA4TAB10 SL; +OPTIRAY 320 IV PRN; -PROPOFOL IV EMULSION 10 MG/ML 20 ML VIAL ONE; +RANI150T3 PO
--- NOTE | 2017-12-10 09:01 | DIAGNOSTIC IMAGING REPORT ---
ABD/PELVIS IV AND ORAL CONT CT DOSE: 266.63 mGy.cm HISTORY: Pain ABD PAIN, DIZZINESS, LUNG CA TECHNIQUE: Multiaxial CT images of the abdomen and pelvis were performed following the use of intravenous and oral contrast. A dose lowering technique was utilized adhering to the principles of ALARA. COMPARISON STUDY: MRI 04/21/2016 FINDINGS: Lung bases are clear. 4 cm hypodense nodule posterior aspect right hepatic lobe consistent with a hemangioma. This is unchanged from the prior MRI study. Spleen is uniform. Right kidney demonstrates an extrarenal pelvis with the seen to a lesser extent on the left. These are chronic findings and are unchanged. The adrenal glands are unremarkable. Bowel pattern within the abdomen and pelvis is nonobstructive. There is no significant adenopathy. Bladder is midline. Osseous structures show no lytic or blastic process. IMPRESSION: 1. No acute process of the abdomen or pelvis. 2. Stable hepatic hemangioma. 3. Otherwise negative study. The above report was generated using voice recognition software. It may contain grammatical, syntax or spelling errors. Electronically signed by: Jr Christiansen M.D. 12/10/2017 9:00 AM Dictated Date/Time: 12/10/2017 8:54 AM
== END | disposition home or self-care (01) ==
LOC: C.CTS 08:18
PROVIDERS: ATTEND Internal Medicine Gastroenterology
DX: R10.9 Unspecified abdominal pain (principal); R42 Dizziness and giddiness; C34.90 Malignant neoplasm of unspecified part of unspecified bronchus or lung

== ENCOUNTER 2017-12-11 15:26 | Emergency (ER) | payer OTHER ==
[~2017-12-11] VITALS: Ht 162.6 cm; Wt 56.8 kg
[~2017-12-11 15:26] MED LIST changes: -ACET-1256 PO; -ANT25 PO; -ASPI81TA28 PO; -CEFD1CAP14 PO; -DOXY20TA3 PO; -MULT-506 PO; -NRN100 PO; -OFLO0.3D4 OTL; -ONDA4TAB10 SL; -OPTIRAY 320 IV PRN; -RANI150T3 PO
[2017-12-11 15:31] VITALS: TEMP 36.6; Ht 162.6 cm; Wt 56.8 kg
[2017-12-11] MEDS ORDERED: SODIUM CHLORIDE 0.9% 1000ML 1,000 ML IV STA (15:44)
[2017-12-11] MEDS ORDERED: OPTIRAY 320 IV PRN (16:00)
[2017-12-11 16:35] LABS: BASO % 0.2 %; BASO ABS # 0.02 K/uL (0-0.2); EOS % 5.2 %; EOS ABS # 0.44 K/uL (0-0.5); HEMATOCRIT 34.5 % (37-47); HEMOGLOBIN 12.1 g/dL (12.0-16.0); IG# 0.01 K/uL (0.00-0.02); LYMPH % 38.3 %; LYMPH ABS # 3.23 K/uL (1.2-3.4); MEAN CELL VOLUME 87.1 fL (80-100); MEAN CORPUSCULAR HEMOGLOBIN 30.6 pg (25-34); MEAN CORPUSCULAR HGB CONC 35.1 g/dl (32-36); MEAN PLATELET VOLUME 9.8 fL (7.4-10.4); MONO % 6.6 %; MONO ABS # 0.56 K/uL (0.11-0.59); NEUT % 49.6 %; NEUT ABS # 4.18 K/uL (1.4-6.5); PLATELET COUNT 187 K/uL (130-400); RED CELL DISTRIBUTION WIDTH CV 12.6 % (11.5-14.5); RED CELL DISTRIBUTION WIDTH SD 40.3 fL (36.4-46.3); WHITE BLOOD COUNT 8.44 K/uL (4.8-10.8)
[2017-12-11] MEDS ORDERED: OFLO0.3D4 OTL (16:36)
[2017-12-11] MEDS ORDERED: NRN100 PO (16:36)
[2017-12-11] MEDS ORDERED: DOXY20TA3 PO (16:36)
[2017-12-11] MEDS ORDERED: ASPI81TA28 PO (16:37)
[2017-12-11] MEDS ORDERED: MULT-506 PO (16:39)
[2017-12-11] MEDS ORDERED: ACET-1256 PO (16:39)
[2017-12-11 16:55] LABS: ALBUMIN 3.7 gm/dl (3.4-5.0); CALCIUM 8.3 mg/dl (8.5-10.1); CREATININE 0.82 mg/dl (0.60-1.20); POTASSIUM 3.4 mmol/L (3.5-5.1); TOTAL PROTEIN 6.6 gm/dl (6.4-8.2)
--- NOTE | 2017-12-11 17:16 | DIAGNOSTIC IMAGING REPORT ---
CT HEAD WITHOUT CONTRAST (CT) CLINICAL HISTORY: Lung carcinoma, dizziness, pain in the arms. Numbness. Nausea. COMPARISON STUDY: 12/09/2015 TECHNIQUE: Axial CT of the brain is performed from the vertex to the skull base. IV contrast was not administered for this examination. A dose lowering technique was utilized adhering to the principles of ALARA. CT DOSE: FINDINGS: No intra or extra-axial mass lesions are visualized. There is no CT evidence of acute cortical infarction. There is no evidence of midline shift. There is no acute hemorrhage. No calvarial fractures are visualized. There is a small stable midline tentorial lipoma There is no evidence of pathologic ventricular dilatation. There is no evidence of acute sinusitis IMPRESSION: No acute intracranial findings. Electronically signed by: Forest Villarreal M.D. 12/11/2017 5:15 PM Dictated Date/Time: 12/11/2017 5:12 PM
--- NOTE | 2017-12-11 17:19 | DIAGNOSTIC IMAGING REPORT ---
CT OF THE CERVICAL SPINE CLINICAL HISTORY: Left arm radiculopathy. COMPARISON STUDY: No previous studies for comparison. CT DOSE: TECHNIQUE: CT scan of the cervical spine was performed from the skull base to the thoracic inlet. Images are reviewed in the axial, sagittal, and coronal planes. IV contrast was not administered for this examination. A dose lowering technique was utilized adhering to the principles of ALARA. FINDINGS: The visualized portions of the lung apices reveal no evidence of pneumothorax. The prevertebral soft tissues are normal. No fractures or subluxations are visualized. There are multilevel degenerative changes, most pronounced at the C3-4 through C6-7 levels. If there is clinical concern over the presence of cord or disc pathology, an MRI would be considered the test of choice in follow-up. IMPRESSION: 1. No fractures or subluxations identified 2. Multilevel degenerative change 3. No destructive lesions are visualized. Electronically signed by: Forest Villarreal M.D. 12/11/2017 5:17 PM Dictated Date/Time: 12/11/2017 5:15 PM
--- NOTE | 2017-12-11 17:27 | DIAGNOSTIC IMAGING REPORT ---
CT OF THE CHEST WITH IV CONTRAST CLINICAL HISTORY: Lung carcinoma. Atypical chest pain. Weakness. COMPARISON STUDY: May 29, 2017 TECHNIQUE: Following the IV administration of 93 mL of Optiray-320, CT of the thorax was performed from the thoracic inlet to the lung bases. Images are reviewed in the axial, sagittal, and coronal planes. IV contrast was administered without complication. A dose lowering technique was utilized adhering to the principles of ALARA. CT DOSE: 2114.55 mGy.cm FINDINGS: Thyroid: Imaged portions of the thyroid gland are normal in appearance. Thoracic aorta: The thoracic aorta is normal in course and caliber, noting standard 3-vessel arch anatomy. No aneurysm or dissection is seen. Pulmonary vasculature: The pulmonary trunk is normal in caliber. There are no central filling defects identified to suggest pulmonary embolus. Note that this examination was not protocoled for the evaluation of pulmonary emboli. HEART: There is a [id number] pericardial effusion similar to the prior study. Lungs and pleural spaces: There are postsurgical changes of a left lower lobectomy. Suture lines are visualized within the left apex. There is no acute parenchymal consolidation. There are no pleural effusions. There is a stable 6 mm groundglass nodule within the right upper lobe. There is a stable 5 mm groundglass pulmonary nodule within the right middle lobe. There is a stable 5 mm groundglass pulmonary nodule within the right lower lobe. Mediastinum: There is no mediastinal lymphadenopathy. Kimberly: There is no evidence of pathologic hilar adenopathy. Axilla: There is no evidence of pathologic axillary lymphadenopathy. Upper abdomen: There is a 3.5 cm right lobe hepatic mass, unchanged from prior studies and likely representing a hemangioma. Skeletal structures: There are no lytic or blastic osseous lesions. There are bilateral rest implants. IMPRESSION: 1. Postsurgical changes within the left lung 2. No evidence of recurrent neoplasm 3. Stable 3.5 cm right lobe hepatic mass, likely representing a hemangioma 4. Subtle right lung groundglass pulmonary nodules remain stable. The largest measures 6 mm. 12 month follow-up is recommended. Electronically signed by: Forest Villarreal M.D. 12/11/2017 5:26 PM Dictated Date/Time: 12/11/2017 5:18 PM
--- NOTE | 2017-12-11 17:30 | DIAGNOSTIC IMAGING REPORT ---
CT LUMBAR SPINE WITHOUT CT DOSE: CLINICAL HISTORY: Lung carcinoma. Bilateral lower extremity weakness. TECHNIQUE: Helical images were acquired in transverse plane. Reformatted sagittal and coronal images were reviewed. A dose lowering technique was utilized adhering to the principles of ALARA. CONTRAST: No contrast was administered COMPARISON STUDY: None. FINDINGS: L1-2 level: There is a minimal circumferential disc bulge. There is no spinal or foraminal stenosis. L2-3 level: There is no evidence of significant disc bulge or focal herniation. There is no evidence of spinal or foraminal stenosis. L3-4 level: There is a mild circumferential disc bulge. There is mild triangular spinal canal narrowing. There is no significant foraminal narrowing L4-5 level: There is a circumferential disc bulge. There is mild triangular spinal canal narrowing. There is no significant foraminal narrowing L5-S1 level: There is no evidence of significant disc bulge or focal herniation. There is no evidence of spinal or foraminal stenosis. No fractures or subluxations are visualized. No destructive lesions are visualized. IMPRESSION: 1. No fractures or subluxations identified 2. No destructive lesions are visualized 3. Mild degenerative changes with mild spinal stenosis at the L3-4, and L4-5 levels. Electronically signed by: Forest Villarreal M.D. 12/11/2017 5:28 PM Dictated Date/Time: 12/11/2017 5:26 PM
--- NOTE | 2017-12-11 17:32 | DIAGNOSTIC IMAGING REPORT ---
CT THORACIC SPINE WITHOUT CT DOSE: CLINICAL HISTORY: Lung carcinoma. Bilateral leg weakness. Arm tingling. TECHNIQUE: Helical images were acquired in the transverse plane. Sagittal and coronal reformatted images were acquired. A dose lowering technique was utilized adhering to the principles of ALARA. COMPARISON STUDY: None. FINDINGS: No fractures or subluxations are visualized. There is no evidence of spinal stenosis. No destructive lesions are visualized. If there is concern over the presence of cord pathology, an MRI would be considered the test of choice in follow-up. There are postsurgical changes of a left lower lobectomy. IMPRESSION: 1. No fractures or subluxations identified 2. No evidence of bony spinal stenosis 3. No destructive lesions are visualized Electronically signed by: Forest Villarreal M.D. 12/11/2017 5:31 PM Dictated Date/Time: 12/11/2017 5:29 PM
[2017-12-11] MEDS ORDERED: ONDA4TAB10 SL (17:38)
[2017-12-11] MEDS ORDERED: RANI150T3 PO (17:38)
[2017-12-11] MEDS ORDERED: ANT25 PO (17:39)
[2017-12-11] MEDS ORDERED: MECLIZINE HCL 25 MG TAB PO STA (17:40)
[2017-12-11] MEDS ORDERED: CEFDINIR 300 MG CAP PO STA (17:46)
[2017-12-11] MEDS ORDERED: CEFD1CAP14 PO (17:47)
--- NOTE | 2017-12-11 17:55 | EMERGENCY ROOM VISIT NOTE ---
History Report prepared by Leti: Ching Zepeda Under the Supervision of: Dr. Ute Bill M.D. First contact with patient: 15:37 Chief Complaint: DIZZY Stated Complaint: DIZZY, NAUSEA,, WEAKNESS, FELLS LIKE BLACK OUT History of Present Illness The patient is a 62 year old female who presents to the Emergency Room with complaints of worsening dizziness that started 3 weeks ago. The patient notes that she has a history of lung cancer 3 times. She notes that she is in an [facility] trial to determine genetically the best treatment for her, but is currently not being treated. The patient describes the dizziness as a motion dizziness and is worse when looking up. The patient states the dizziness initially came in episodes, but it has now become constant. The patient also complains of worsening nausea, weakness, tinging down her left arm, diarrhea, fatigue, bloating, abdominal pain, and tinnitus. She reports she has had periods of lightheadedness over past couple of months when she stands, and feels like she is going to pass out. She states she took Tylenol earlier today with no relief. The patient reports she has been eating and drinking regularly, but notes that she has had loss of appetite. 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 She notes she started reducing her Gabapentin very slowly because she was worried it was causing her dizziness, and her neuropathy is slowly coming back as a result. She states she is currently taking 200 mg of Gabapentin, Doxycycline 20 mg twice a day, antibiotic ear drops for an ear infection, and aspirin. She reports she stopped taking aspirin yesterday or the day before. Source of History: patient Onset: 3 weeks ago Quality: other (dizziness) Timing: worsening Modifying Factors (Worsening): other (looking up) Associated Symptoms: + nausea, + abdominal pain, + diarrhea, + fatigue, + weakness Note: The patient complains of tingling down her left arm, bloating, tinnitus, lightheadedness, loss of appetite, and neuropathy. Review of Systems See HPI for pertinent positives & negatives. A total of 10 systems reviewed and were otherwise negative. Past Medical & Surgical Medical Problems: (1) Anxiety (2) Bronchitis (3) Clostridium difficile enterocolitis (4) Failure of outpatient treatment (5) Hx of endoscopy (6) Hx of pancreatitis (7) Hx of ventricular tachycardia (8) Hyperlipidemia Surgical Problems: (1) History of lobectomy of lung Family History Heart disease Hypertension Lung disease Social History Smoking Status: Current Every Day Smoker Alcohol Use: occasionally Drug Use: none Marital Status: Housing Status: lives with family Occupation Status: employed Current/Historical Medications Scheduled Aspirin (Aspirin Ec), 81 MG PO DAILY Atenolol (Tenormin), 25 MG PO QPM Cefdinir (Omnicef), 300 MG PO Q12H Doxycycline Hyclate (Doxycycline Hyclate), 20 MG PO BID Gabapentin (Gabapentin), 100 MG PO BID Multiple Vitamins W/ Minerals (Ocuvite), 1 TAB PO QAM Multivitamin (Multivitamin), 1 TAB PO DAILY Ofloxacin (Otic) (Floxin Otic), 1 DROP OTL BID [place]-3 Fatty Acids ([place] 3), 1 CAP PO DAILY Ondasetron Odt (Zofran Odt), 4 MG SL Q6H Pancrelipase (Lipase-Protease- ([place] [id number]), 2 CAP PO TIDM Ranitidine Hcl (Zantac), 150 MG PO BID Scheduled PRN Acetaminophen (Tylenol), 500 MG PO UD PRN for Pain or Fever Meclizine HCl (Meclizine HCl), 1 MG PO Q8 PRN for vertigo Allergies Coded Allergies: Latex (Verified Allergy, Severe, INFLAMATION, REDNESS, PAIN, 09/29/17) Sulfa Antibiotics (Verified Allergy, Severe, RASH, 09/29/17) FROM [facility] Calcium Channel Blockers (Verified Allergy, Unknown, CAN'T REMEMBER, ) Cetirizine (Verified Allergy, Unknown, VASCULAR CONTRACTIONS, 09/29/17) Chlorine (Unverified Allergy, Unknown, INFLAMMATION, 09/29/17) Ciprofloxacin (Verified Allergy, Unknown, RASH, 09/29/17) Clarithromycin (Verified Allergy, Unknown, RASH, 09/29/17) Doxycycline (Verified Allergy, Unknown, PANCREATITIS, 09/29/17) Milk (Verified Allergy, Unknown, LACTOSE INTOL, 09/29/17) Milk-related Compounds (Verified Allergy, Unknown, LACTOSE INTOL., 09/29/17 ) Mirtazapine (Verified Allergy, Unknown, "TETRACYCLIC ANTIDEPRESSANTS", ) Nitrofurantoin (Verified Allergy, Unknown, RASH, 09/29/17) Metaxalone (Verified Adverse Reaction, Intermediate, RACING HEART, DIZZY, SICK, PAIN IN ANKLES/FEET, 09/29/17) Monosodium Glutamate (Verified Adverse Reaction, Mild, MIGRAINES, 09/29/17) Azithromycin (Verified Adverse Reaction, Unknown, GI DISTRESS, 09/29/17) Clavulanic Acid (Verified Adverse Reaction, Unknown, DIARRHEA, 09/29/17) Codeine (Verified Adverse Reaction, Unknown, DROP IN BP, 09/29/17) Fentanyl (Verified Adverse Reaction, Unknown, VOMITTING, 09/29/17) LOWERS BP, VOMITING Hydromorphone (Verified Adverse Reaction, Unknown, VOMITTING, 09/29/17) Lactose (Verified Adverse Reaction, Unknown, INTOLERANT, 09/29/17) NSAIDs (Verified Adverse Reaction, Unknown, WATER RETENTION, 09/29/17) Statins (Verified Adverse Reaction, Unknown, MUSCLE LEG PAIN, 09/29/17) Tramadol (Verified Adverse Reaction, Unknown, SICK, 09/29/17) Uncoded Allergies: CHEMOTHERAPY DRUG 2015 (Allergy, Severe, HEAD TO TOE INFLAMMATION PAINFUL, 09/29/17) HOSPITALIZED FOR 4 TIMES AZOTEMIC FRAGRANCES (Allergy, Unknown, INFLAMMATION AND IRRITATION, 12/09/15) [place] (Allergy, Unknown, SWELLING AROUND EYES, 12/09/15) PETROLEUM (Allergy, Unknown, SWELLING, REDNESS, IRRITATION, 12/09/15) THIMERASOL (Allergy, Unknown, HIGH FEVER AND BLINDING HEADACHE, 12/09/15) ANTIDEPRESSANTS (Adverse Reaction, Unknown, ARRHYTHYMIA, 12/09/15) MYCINS (Adverse Reaction, Unknown, GI INTOLERANCE, 12/09/15) STEROID (Adverse Reaction, Unknown, SEVERE PAIN, BURNING HOT, INFLAMMATION , 12/09/15) STEROID INJECTION* Physical Exam Vital Signs Date Time Temp Pulse Resp B/P (MAP) Pulse Ox O2 Delivery O2 Flow Rate FiO2 12/11/17 18:08 68 18 116/65 100 12/11/17 17:30 70 16 118/80 100 Room Air 12/11/17 17:23 62 18 116/60 100 Room Air 64 117/61 70 118/68 12/11/17 16:55 61 12/11/17 15:31 36.6 71 18 126/61 100 Room Air Physical Exam Vital signs reviewed. General: Well-appearing, in no significant distress. HEENT: No scleral icterus, PERRLA, neck supple. Atraumatic. Cardiovascular: Regular rate and rhythm, no extra sounds. Pulmonary: Clear to auscultation bilaterally, normal work of breathing. Abdomen: Soft, mild epigastric abdominal tenderness, nondistended, positive bowel sounds. Musculoskeletal: Atraumatic, no peripheral edema. Neurologic: Patient awake alert and oriented x 3, full strength in all 4 extremities. Cranial nerves 2 through 12 grossly intact. Skin: Warm, dry, no rash Medical Decision & Procedures ER Provider Diagnostic Interpretation: Radiology results as stated below per my review and radiologist interpretation: CT THORACIC SPINE WITHOUT CT DOSE: CLINICAL HISTORY: Lung carcinoma. Bilateral leg weakness. Arm tingling. TECHNIQUE: Helical images were acquired in the transverse plane. Sagittal and coronal reformatted images were acquired. A dose lowering technique was utilized adhering to the principles of ALARA. COMPARISON STUDY: None. FINDINGS: No fractures or subluxations are visualized. There is no evidence of spinal stenosis. No destructive lesions are visualized. If there is concern over the presence of cord pathology, an MRI would be considered the test of choice in follow-up. There are postsurgical changes of a left lower lobectomy. IMPRESSION: 1. No fractures or subluxations identified 2. No evidence of bony spinal stenosis 3. No destructive lesions are visualized Electronically signed by: Forest Villarreal M.D. 12/11/2017 5:31 PM Dictated Date/Time: 12/11/2017 5:[address] LUMBAR SPINE WITHOUT CT DOSE: CLINICAL HISTORY: Lung carcinoma. Bilateral lower extremity weakness. TECHNIQUE: Helical images were acquired in transverse plane. Reformatted sagittal and coronal images were reviewed. A dose lowering technique was utilized adhering to the principles of ALARA. CONTRAST: No contrast was administered COMPARISON STUDY: None. FINDINGS: L1-2 level: There is a minimal circumferential disc bulge. There is no spinal or foraminal stenosis. L2-3 level: There is no evidence of significant disc bulge or focal herniation. There is no evidence of spinal or foraminal stenosis. L3-4 level: There is a mild circumferential disc bulge. There is mild triangular spinal canal narrowing. There is no significant foraminal narrowing L4-5 level: There is a circumferential disc bulge. There is mild triangular spinal canal narrowing. There is no significant foraminal narrowing L5-S1 level: There is no evidence of significant disc bulge or focal herniation. There is no evidence of spinal or foraminal stenosis. No fractures or subluxations are visualized. No destructive lesions are visualized. IMPRESSION: 1. No fractures or subluxations identified 2. No destructive lesions are visualized 3. Mild degenerative changes with mild spinal stenosis at the L3-4, and L4-5 levels. Electronically signed by: Forest Villarreal M.D. 12/11/2017 5:28 PM Dictated Date/Time: 12/11/2017 5:[address] HEAD WITHOUT CONTRAST (CT) CLINICAL HISTORY: Lung carcinoma, dizziness, pain in the arms. Numbness. Nausea. COMPARISON STUDY: 12/09/2015 TECHNIQUE: Axial CT of the brain is performed from the vertex to the skull base. IV contrast was not administered for this examination. A dose lowering technique was utilized adhering to the principles of ALARA. CT DOSE: FINDINGS: No intra or extra-axial mass lesions are visualized. There is no CT evidence of acute cortical infarction. There is no evidence of midline shift. There is no acute hemorrhage. No calvarial fractures are visualized. There is a small stable midline tentorial lipoma There is no evidence of pathologic ventricular dilatation. There is no evidence of acute sinusitis IMPRESSION: No acute intracranial findings. Electronically signed by: Forest Villarreal M.D. 12/11/2017 5:15 PM Dictated Date/Time: 12/11/2017 5:[address] OF THE CHEST WITH IV CONTRAST CLINICAL HISTORY: Lung carcinoma. Atypical chest pain. Weakness. COMPARISON STUDY: May 29, 2017 TECHNIQUE: Following the IV administration of 93 mL of Optiray-320, CT of the thorax was performed from the thoracic inlet to the lung bases. Images are reviewed in the axial, sagittal, and coronal planes. IV contrast was administered without complication. A dose lowering technique was utilized adhering to the principles of ALARA. CT DOSE: 2114.55 mGy.cm FINDINGS: Thyroid: Imaged portions of the thyroid gland are normal in appearance. Thoracic aorta: The thoracic aorta is normal in course and caliber, noting standard 3-vessel arch anatomy. No aneurysm or dissection is seen. Pulmonary vasculature: The pulmonary trunk is normal in caliber. There are no central filling defects identified to suggest pulmonary embolus. Note that this examination was not protocoled for the evaluation of pulmonary emboli. HEART: There is a [id number] pericardial effusion similar to the prior study. Lungs and pleural spaces: There are postsurgical changes of a left lower lobectomy. Suture lines are visualized within the left apex. There is no acute parenchymal consolidation. There are no pleural effusions. There is a stable 6 mm groundglass nodule within the right upper lobe. There is a stable 5 mm groundglass pulmonary nodule within the right middle lobe. There is a stable 5 mm groundglass pulmonary nodule within the right lower lobe. Mediastinum: There is no mediastinal lymphadenopathy. Kimberly: There is no evidence of pathologic hilar adenopathy. Axilla: There is no evidence of pathologic axillary lymphadenopathy. Upper abdomen: There is a 3.5 cm right lobe hepatic mass, unchanged from prior studies and likely representing a hemangioma. Skeletal structures: There are no lytic or blastic osseous lesions. There are bilateral rest implants. IMPRESSION: 1. Postsurgical changes within the left lung 2. No evidence of recurrent neoplasm 3. Stable 3.5 cm right lobe hepatic mass, likely representing a hemangioma 4. Subtle right lung groundglass pulmonary nodules remain stable. The largest measures 6 mm. 12 month follow-up is recommended. Electronically signed by: Forest Villarreal M.D. 12/11/2017 5:26 PM Dictated Date/Time: 12/11/2017 5:[address] OF THE CERVICAL SPINE CLINICAL HISTORY: Left arm radiculopathy. COMPARISON STUDY: No previous studies for comparison. CT DOSE: TECHNIQUE: CT scan of the cervical spine was performed from the skull base to the thoracic inlet. Images are reviewed in the axial, sagittal, and coronal planes. IV contrast was not administered for this examination. A dose lowering technique was utilized adhering to the principles of ALARA. FINDINGS: The visualized portions of the lung apices reveal no evidence of pneumothorax. The prevertebral soft tissues are normal. No fractures or subluxations are visualized. There are multilevel degenerative changes, most pronounced at the C3-4 through C6-7 levels. If there is clinical concern over the presence of cord or disc pathology, an MRI would be considered the test of choice in follow-up. IMPRESSION: 1. No fractures or subluxations identified 2. Multilevel degenerative change 3. No destructive lesions are visualized. Electronically signed by: Forest Villarreal M.D. 12/11/2017 5:17 PM Dictated Date/Time: 12/11/2017 5:15 PM Laboratory Results 12/11/17 16:24 Red Blood Count 3.96, Mean Corpuscular Volume 87.1, Mean Corpuscular Hemoglobin 30.6, Mean Corpuscular Hemoglobin Concent 35.1, Mean Platelet Volume 9.8, Neutrophils (%) (Auto) 49.6, Lymphocytes (%) (Auto) 38.3, Monocytes (%) (Auto) 6.6, Eosinophils (%) (Auto) 5.2, Basophils (%) (Auto) 0.2, Neutrophils # (Auto) 4.18, Lymphocytes # (Auto) 3.23, Monocytes # (Auto) 0.56, Eosinophils # (Auto) 0.44, Basophils # (Auto) 0.02 12/11/17 16:24 Test 12/11/17 16:24 12/11/17 17:28 White Blood Count 8.44 K/uL (4.8-10.8) Red Blood Count 3.96 M/uL (4.2-5.4) Hemoglobin 12.1 g/dL (12.0-16.0) Hematocrit 34.5 % (37-47) Mean Corpuscular Volume 87.1 fL (80-100) Mean Corpuscular Hemoglobin 30.6 pg (25-34) Mean Corpuscular Hemoglobin Concent 35.1 g/dl (32-36) Platelet Count 187 K/uL (130-400) Mean Platelet Volume 9.8 fL (7.4-10.4) Neutrophils (%) (Auto) 49.6 % Lymphocytes (%) (Auto) 38.3 % Monocytes (%) (Auto) 6.6 % Eosinophils (%) (Auto) 5.2 % Basophils (%) (Auto) 0.2 % Neutrophils # (Auto) 4.18 K/uL (1.4-6.5) Lymphocytes # (Auto) 3.23 K/uL (1.2-3.4) Monocytes # (Auto) 0.56 K/uL (0.11-0.59) Eosinophils # (Auto) 0.44 K/uL (0-0.5) Basophils # (Auto) 0.02 K/uL (0-0.2) RDW Standard Deviation 40.3 fL (36.4-46.3) RDW Coefficient of Variation 12.6 % (11.5-14.5) Immature Granulocyte % (Auto) 0.1 % Immature Granulocyte # (Auto) 0.01 K/uL (0.00-0.02) Anion Gap 7.0 mmol/L (3-11) Est Creatinine Clear Calc Drug Dose 59.9 ml/min Estimated GFR () 87.6 Estimated GFR (Non- 75.6 BUN/Creatinine Ratio 18.7 (10-20) Calcium Level 8.3 mg/dl (8.5-10.1) Total Bilirubin 0.6 mg/dl (0.2-1) Direct Bilirubin 0.1 mg/dl (0-0.2) Aspartate Amino Transf (AST/SGOT) 21 U/L (15-37) Alanine Aminotransferase (ALT/SGPT) 22 U/L (12-78) Alkaline Phosphatase 54 U/L (45-117) Total Protein 6.6 gm/dl (6.4-8.2) Albumin 3.7 gm/dl (3.4-5.0) Lipase 536 U/L (73-393) Urine Color YELLOW Urine Appearance CLEAR (CLEAR) Urine pH 8.0 (4.5-7.5) Urine Specific [place] 1.023 (1.000-1.030) Urine Protein NEG (NEG) Urine Glucose (UA) NEG (NEG) Urine Ketones NEG (NEG) Urine Occult Blood NEG (NEG) Urine Nitrite NEG (NEG) Urine Bilirubin NEG (NEG) Urine Urobilinogen NEG (NEG) Urine Leukocyte Esterase NEG (NEG) Laboratory results per my review. Medications Administered Medications (Trade) Dose Ordered Sig/Alka Route Start Time Stop Time Status Last Admin Dose Admin Sodium Chloride 1,000 ml @ 200 mls/hr Q5H STAT IV 12/11/17 15:44 12/11/17 18:37 DC 12/11/17 16:41 200 MLS/HR Meclizine HCl (Antivert Tab) 25 mg NOW STAT PO 12/11/17 17:40 12/11/17 17:41 DC 12/11/17 17:55 25 MG Cefdinir (Omnicef Cap) 300 mg ONE STAT PO 12/11/17 17:46 12/11/17 17:47 DC 12/11/17 17:58 300 MG Heparin Sodium (Porcine) (Heparin 100 Unit/ml 5ml Flush) 5 ml STK-MED ONCE .ROUTE 7/28/18 17:57 12/11/17 17:58 DC 12/11/17 17:57 5 ML ECG Per My Interpretation Indication: abdominal pain Rate (beats per minute): 60 Rhythm: normal sinus Findings: no acute ischemic change, no ectopy ED Course 1544: Ordered NSS 1000 ml @ 200 mls/hr IV. 1545: Past medical records reviewed. The patient was evaluated in room C11B. A complete history and physical examination was performed. 1740: Ordered Antivert Tab 25 mg PO. 174: Upon reevaluation, the patient appeared to have improvement of her symptoms. I discussed findings with her. She verbalized agreement of the treatment plan. The patient was discharged home. 174: Ordered Cefdinir 300 mg PO. Medical Decision Differential diagnosis: Etiologies such as benign positional vertigo, dehydration, hypovolemia, anemia, tumor, infection, hypoglycemia, electrolyte abnormalities, cardiac sources, intracerebral event, toxicologic, neurologic, metastatic disease, as well as others were entertained. This patient was evaluated and appeared to be in no significant distress. IV access was obtained and laboratory work was drawn. The patient is understandably concerned about the possibility of metastatic lung cancer as she has been diagnosed twice previously in the past. Given her multiple symptoms, primarily her concern over vertigo and neurologic findings, CT scan of the head , neck, thoracic and lumbar spines were ordered. CT scan of the chest was also ordered to rule out metastatic disease. The patient had a CT scan of the abdomen pelvis performed as an outpatient earlier this week. There is no evidence of metastatic recurrence at this time. The patient is delighted with the results. She does have a history of chronic pancreatitis and found to have a elevation of the lipase to 500. This seems to be her baseline. She has evidence of a left otitis media on exam that she has been treating with topical medications. She feels prepared to start antibiotics despite her history of C. difficile colitis. Patient was treated with Omnicef 300 mg p.o. twice daily 7 days. She will have reevaluation with her PCP and oncologist as needed. She will return to the ED for worsening of symptoms or any medical concerns. Medication Reconcilliation Current Medication List: was personally reviewed by me Blood Pressure Screening Patient's blood pressure: Normal blood pressure Blood pressure disposition: Did not require urgent referral Impression Primary Impression: Vertigo Additional Impressions: Chronic pancreatitis H/O: lung cancer Pulmonary nodules/lesions, multiple Left acute otitis media Scribe Attestation The scribe's documentation has been prepared under my direction and personally reviewed by me in its entirety. I confirm that the note above accurately reflects all work, treatment, procedures, and medical decision making performed by me. Departure Information Dispostion Home / Self-Care Prescriptions Cefdinir (Omnicef) 300 Mg Cap 300 MG PO Q12H for 7 Days, #14 CAP Prov: Ute Bill M.D. 12/11/17 Meclizine HCl (Meclizine HCl) 25 Mg Tab 1 MG PO Q8 Y for vertigo, #30 TABS Prov: Ute Bill M.D. 12/11/17 Ranitidine Hcl (ZANTAC) 150 Mg Tab 150 MG PO BID, #60 TAB Prov: Ute Bill M.D. 12/11/17 Ondasetron Odt (ZOFRAN ODT) 4 Mg Tab 4 MG SL Q6H for Nausea, #10 TAB Prov: Ute Bill M.D. 12/11/17 Referrals Tara Harris PA-C (PCP) Forms HOME CARE DOCUMENTATION FORM, IMPORTANT VISIT INFORMATION Patient Instructions My [facility] Additional Instructions Please continue your eardrops as prescribed for the left ear infection. Meclizine 25 mg every 8 hours as needed for vertigo. Please drink plenty of clear fluids. Your lipase is elevated at 525 today. Zofran 4 mg ODT every 6 hours as needed for nausea. Consider Zantac 150 mg twice daily as needed. Follow-up with your primary care physician for reevaluation this week. Return to the emergency department for worsening of symptoms or any medical concerns. Problem Qualifiers
[2017-12-11 18:08] VITALS: BP 116/65; PULSE 68; O2SAT 100
== END 2017-12-11 18:10 | disposition home or self-care (01) ==
LOC: C.EDB 15:27 → C.EDC 18:10
DX: R42 Dizziness and giddiness (principal); K86.1 Other chronic pancreatitis; Z85.118 Personal history of other malignant neoplasm of bronchus and lung; R91.8 Other nonspecific abnormal finding of lung field; H66.92 Otitis media, unspecified, left ear; E78.5 Hyperlipidemia, unspecified; F17.210 Nicotine dependence, cigarettes, uncomplicated; Z79.82 Long term (current) use of aspirin; Z79.899 Other long term (current) drug therapy; Z91.040 Latex allergy status; Z88.2 Allergy status to sulfonamides; Z88.1 Allergy status to other antibiotic agents; Z88.8 Allergy status to other drugs, medicaments and biological substances; Z88.5 Allergy status to narcotic agent; Z91.011 Allergy to milk products